=== PATIENT | female | born 1940 | race Caucasian/White ===

== ENCOUNTER 2020-06-28 06:24 | Inpatient (IN) | payer MEDICARE, BC ==
[~2020-06-28 06:24] MED LIST: Lactated Ringers 1,000 ML IV SCH; Lidocaine 1%/Sod Bicarbonate in NS 8.4% 1 ML Syringe IDERM PRN; Sodium Chloride 0.9% 10 ML Syringe FLUSH PRN
[2020-06-28] MEDS ORDERED: Ondansetron 4 MG/2 ML SDV ONE (07:03)
[2020-06-28] MEDS ORDERED: Lidocaine 1% 4 ML ONE (07:04)
[2020-06-28] MEDS ORDERED: fentaNYL 100 MCG/2 ML SDV ONE (07:04)
[2020-06-28] MEDS ORDERED: Propofol 200 MG/20 ML SDV ONE ×3 (07:04→09:08)
[2020-06-28] MEDS ORDERED: ceFAZolin 1 GM Vial ONE (07:05)
--- NOTE | 2020-06-28 07:10 | PCM.PREANE ---
Preanesthetic Assessment - Procedure Proposed Procedure: Left total hip arthroplasty - Anesthesia/Transfusion/Family Hx Anesthesia History: Prior Anesthesia Without Reaction Family History of Anesthesia Reaction: No Transfusion History: No Prior Transfusion(s) - Review of Systems General: No Symptoms Pulmonary: No Symptoms Cardiovascular: Dyspnea on Exertion Gastrointestinal: No Symptoms Neurological: No Symptoms Other: Reports: Diabetes (on no meds "borderline"), Anxiety - Physical Assessment NPO Status Date: 06/27/20 NPO Status Time: 00:00 Height: 1.65 m Weight: 82.962 kg ASA Class: 3 Mental Status: Alert & Oriented x3 Thyro-Mental Finger Breadths: 2 Mouth Opening Finger Breadths: 2 ROM/Head Extension: Limited/Partial Lungs: Clear to Auscultation, Normal Respiratory Effort Cardiovascular: Regular Rate, Regular Rhythm - Lab Values: Laboratory Last Values SARS Virus RNA (PCR) Negative (NEGATIVE) 06/27/20 11:00 - Imaging/EKG Impressions: EKG NSR with bigeminal PACs - Allergies Allergies/Adverse Reactions: Allergies Allergy/AdvReac Type Severity Reaction Status Date / Time MARGOT Inhibitors Allergy Cough Verified 06/27/20 13:26 celecoxib [From Celebrex] Allergy Cannot Verified 06/27/20 13:26 Remember Cephalosporins Allergy Rash Verified 06/27/20 13:26 codeine Allergy Rash Verified 06/27/20 13:26 niacin Allergy Rash Verified 06/27/20 13:26 [From Niaspan Extended-Release] NSAIDS (Non-Steroidal Allergy Confusion Verified 06/27/20 13:26 Anti-Inflamma betablockers Allergy Rash Uncoded 06/27/20 13:26 - Anesthesia Plan Pre-Op Medication Ordered: None - Acknowledgements Anesthesia Type Planned: Spinal Pt an Appropriate Candidate for the Planned Anesthesia: Yes Alternatives and Risks of Anesthesia Discussed w Pt/Guardian: Yes Pt/Guardian Understands and Agrees with Anesthesia Plan: Yes PreAnesthesia Questionnaire HEENT History: Reports: Sinusitis, Other (See Below) Other HEENT History: excessive cerumen, pharyngitis Cardiovascular History: Reports: Other (See Below) Other Cardiovascular History: varicose veins, statin myopathy, right carotid bruit, tachycardia, aortic systolic murmur, aortic stenosis, heart cath Respiratory History: Reports: Other (See Below) Other Respiratory History: upper respiratory infection Gastrointestinal History: Reports: Chronic Constipation, Colon Polyp, GERD, Other (See Below) Other Gastrointestinal History: RUQ pain Genitourinary History: Reports: Other (See Below) Other Genitourinary History: nephrolithitiasis, UTI, dysuria [employer] History: Reports: Musculoskeletal History: Reports: Osteoarthritis, Osteoporosis, Other (See Below) Other Musculoskeletal History: neuropathic leg pain, left toe valgus deformity, bilateral carpal tunnel syndrome, trochanteric bursitis, shoulder spasm, left index finger trigger finger, left bunion, degenerative disc disease Neurological History: Reports: Neuropathy, Diabetic, TIA, Vertigo Other Neuro History: cerebrovascular disease, diabetic neuropathy, vertigo Psychiatric History: Reports: Anxiety, Depression, Other (See Below) Other Psychiatric History: claustrophobia Endocrine/Metabolic History: Reports: Diabetes, Type II, Obesity/BMI 30+, Vitamin D Deficiency Hematologic History: Reports: Anemia Immunologic History: Reports: None Oncologic (Cancer) History: Reports: None Dermatologic History: Reports: Other (See Below) Other Dermatologic History: onchomycosis, tinea corposis, wound dehisence - Infectious Disease History Infectious Disease History: Reports: None - Past Surgical History Head Surgeries/Procedures: Reports: None Cardiovascular Surgical History: Reports: None Respiratory Surgical History: Reports: None GI Surgical History: Reports: Cholecystectomy, Colonoscopy, EGD, Other (See Below) Other GI Surgeries/Procedures: laryngoscopy Female Surgical History: Reports: None Male Surgical History: Reports: None Endocrine Surgical History: Reports: None Neurological Surgical History: Reports: None Musculoskeletal Surgical History: Reports: Carpal Tunnel, Hip Replacement, Knee Replacement Oncologic Surgical History: Reports: None Dermatological Surgical History: Reports: None - SUBSTANCE USE Smoking Status *Q: Never Smoker Tobacco Use Within Last Twelve Months: No Second Hand Smoke Exposure: No Days Per Week of Alcohol Use: 0 Number of Drinks Per Day: 0 Total Drinks Per Week: 0 Recreational Drug Use History: No - HOME MEDS Home Medications: Home Meds Acetaminophen [Tylenol Extra Strength] 1,000 mg PO QID PRN 06/27/20 [History] Ascorbic Acid [Vitamin C] 1,000 mg PO DAILY 06/27/20 [History] Bladder Brake 1 dose PO BID 06/27/20 [History] Calcium Carbonate [Calcium] 500 mg PO DAILY 06/27/20 [History] Cholecalciferol (Vitamin D3) [Vitamin D3] 1,000 unit PO DAILY 06/27/20 [History] Clopidogrel Bisulfate [Plavix] 75 mg PO DAILY 06/27/20 [History] Cod Liver Oil 1 cap PO DAILY 06/27/20 [History] Codeine/Promethazine HCl [Promethazine-Codeine Syrup] 5 ml PO TID PRN 06/27/20 [History] Gabapentin [Neurontin] 100 mg PO BID 06/27/20 [History] Ipratropium [Atrovent 0.03% Nasal [place]] 1 dose NASBOTH QID PRN 06/27/20 [History] Losartan/Hydrochlorothiazide [Losartan-HCTZ 100-25 MG] 1 tab PO DAILY 06/27/20 [History] Neurocare 1 dose PO BID 06/27/20 [History] [place]-3/DHA/Epa/Fish Oil [[place] 3 500 Softgel] 1 cap PO ASDIRECTED 06/27/20 [History] Revivify 1 dose PO BID 06/27/20 [History] Vit C/E/Zn/Coppr/Lutein/Zeaxan [Preservision Areds 2 Softgel] 1 cap PO DAILY 06/27/20 [History] traMADol [Ultram] 50 mg PO Q6H PRN 06/27/20 [History] - CURRENT (IN HOUSE) MEDS Current Meds: Current Medications Lactated Ringer's (Ringers, Lactated) 1,000 mls @ 125 mls/hr IV ASDIRECTED CLAUDETTE Stop: 06/28/20 23:00 Lidocaine/Sodium Bicarbonate (Buffered Lidocaine 1% In Ns 8.4%) 0.25 ml IDERM ONETIME PRN PRN Reason: Prior to IV Start Stop: 06/28/20 18:00 Sodium Chloride (Saline Flush) 10 ml FLUSH ASDIRECTED PRN PRN Reason: Keep Vein Open Stop: 06/28/20 18:00
[2020-06-28] MEDS ORDERED: Bisacodyl 5 MG Tab PO PRN (07:34)
[2020-06-28] MEDS ORDERED: Naloxone 0.4 MG/ML SDV IVPUSH PRN (07:34)
[2020-06-28] MEDS ORDERED: Sennosides 8.6 MG Tab PO PRN (07:34)
[2020-06-28] MEDS ORDERED: Magnesium Hydroxide 400 MG/5 ML Susp 30 ML Cup PO PRN (07:34)
[2020-06-28] MEDS ORDERED: Morphine 2 MG/ML SYRINGE IVPUSH PRN (07:34)
[2020-06-28] MEDS ORDERED: Lactated Ringers 1,000 ML ONE (08:01)
[2020-06-28] MEDS ORDERED: Midazolam 1 MG/ML 2 ML SDV ONE (08:19)
--- NOTE | 2020-06-28 08:32 | PCM.CONS ---
H&P History of Present Illness - General Date of Service: 06/28/20 Admit Problem/Dx: Admission Diagnosis/Problem Admission Diagnosis/Problem Osteoarthritis of hip Source of Information: Patient, Old Records, Provider, RN, RN Notes Reviewed History Limitations: Reports: No Limitations - History of Present Illness Initial Comments - Free Text/Narative: Estelle Irwin is an 80 yo female patient of Dr. Bauer who is post-operative day 0 of left ОЛЕГ. Hospital medicine was consulted for post-operative medical care of the following listed medical conditions. At this time she is resting comfortably in bed. Pain is controlled. She denies any chest pain, shortness of breath, palpitations, nausea, or vomiting. She carries a history of: mild to moderate aortic stenosis, Type II DM, HTN, HLD, Obesity, Hx/o TIA, OA, Anxiety, Depression, GERD, Osteoporosis, perinephrial neuropathy, anemia, urolithiasis, constipation, Vitamin D deficiency, Vertigo. She was never a smoker. She is a full code. Her primary care provider is Marilin Villa PA-C. Her carroting machine offbearer is Dr. Stevens. Left Hip Pain Score (Numeric/FACES): 0 - Related Data Allergies/Adverse Reactions: Allergies Allergy/AdvReac Type Severity Reaction Status Date / Time celecoxib [From Celebrex] Allergy Cannot Verified 06/28/20 11:24 Remember Cephalosporins Allergy Rash Verified 06/28/20 11:24 codeine Allergy Rash Verified 06/28/20 11:24 niacin Allergy Rash Verified 06/28/20 11:24 [From Niaspan Extended-Release] MARGOT Inhibitors AdvReac Cough Verified 06/28/20 11:24 NSAIDS (Non-Steroidal AdvReac Confusion Verified 06/28/20 11:24 Anti-Inflamma betablockers Allergy Rash Uncoded 06/28/20 11:24 Home Medications: Home Meds Acetaminophen [Tylenol Extra Strength] 1,000 mg PO QID PRN 06/27/20 [History] Ascorbic Acid [Vitamin C] 1,000 mg PO DAILY 06/27/20 [History] Calcium Carbonate [Calcium] 500 mg PO DAILY 06/27/20 [History] Cholecalciferol (Vitamin D3) [Vitamin D3] 1,000 unit PO DAILY 06/27/20 [History] Clopidogrel Bisulfate [Plavix] 75 mg PO DAILY 06/27/20 [History] Cod Liver Oil 1 cap PO DAILY 06/27/20 [History] Gabapentin [Neurontin] 100 mg PO DAILY 06/27/20 [History] Ipratropium [Atrovent 0.03% Nasal [place]] 1 dose NASBOTH QID PRN 06/27/20 [History] Losartan/Hydrochlorothiazide [Losartan-HCTZ 100-25 MG] 1 tab PO DAILY 06/27/20 [History] [place]-3/DHA/Epa/Fish Oil [[place] 3 500 Softgel] 1 cap PO ASDIRECTED 06/27/20 [History] Revivify 1 dose PO BID 06/27/20 [History] Vit C/E/Zn/Coppr/Lutein/Zeaxan [Preservision Areds 2 Softgel] 1 cap PO DAILY 06/27/20 [History] traMADol [Ultram] 50 mg PO Q6H PRN 06/27/20 [History] raNITIdine 150 mg PO BID 06/28/20 [History] Past Medical History HEENT History: Reports: Sinusitis, Other (See Below) Other HEENT History: excessive cerumen, pharyngitis Cardiovascular History: Reports: Other (See Below) Other Cardiovascular History: varicose veins, statin myopathy, right carotid bruit, tachycardia, aortic systolic murmur, aortic stenosis, heart cath Respiratory History: Reports: Other (See Below) Other Respiratory History: upper respiratory infection Gastrointestinal History: Reports: Chronic Constipation, Colon Polyp, GERD, Other (See Below) Other Gastrointestinal History: RUQ pain Genitourinary History: Reports: Other (See Below) Other Genitourinary History: nephrolithitiasis, UTI, dysuria [employer] History: Reports: Musculoskeletal History: Reports: Osteoarthritis, Osteoporosis, Other (See Below) Other Musculoskeletal History: neuropathic leg pain, left toe valgus deformity, bilateral carpal tunnel syndrome, trochanteric bursitis, shoulder spasm, left index finger trigger finger, left bunion, degenerative disc disease Neurological History: Reports: Neuropathy, Diabetic, TIA, Vertigo Other Neuro History: cerebrovascular disease, diabetic neuropathy, vertigo Psychiatric History: Reports: Anxiety, Depression, Other (See Below) Other Psychiatric History: claustrophobia Endocrine/Metabolic History: Reports: Diabetes, Type II, Obesity/BMI 30+, Vitamin D Deficiency Hematologic History: Reports: Anemia Immunologic History: Reports: None Oncologic (Cancer) History: Reports: None Dermatologic History: Reports: Other (See Below) Other Dermatologic History: onchomycosis, tinea corposis, wound dehisence - Infectious Disease History Infectious Disease History: Reports: None - Past Surgical History Head Surgeries/Procedures: Reports: None Cardiovascular Surgical History: Reports: None Respiratory Surgical History: Reports: None GI Surgical History: Reports: Cholecystectomy, Colonoscopy, EGD, Other (See Below) Other GI Surgeries/Procedures: laryngoscopy Female Surgical History: Reports: None Male Surgical History: Reports: None Endocrine Surgical History: Reports: None Neurological Surgical History: Reports: None Musculoskeletal Surgical History: Reports: Carpal Tunnel, Hip Replacement, Knee Replacement Oncologic Surgical History: Reports: None Dermatological Surgical History: Reports: None Social & Family History - Tobacco Use Smoking Status *Q: Never Smoker Second Hand Smoke Exposure: No - Caffeine Use Caffeine Use: Reports: Coffee, Soda - Alcohol Use Days Per Week of Alcohol Use: 0 Number of Drinks Per Day: 0 Total Drinks Per Week: 0 - Recreational Drug Use Recreational Drug Use: No Drug Use in Last 12 Months: No H&P Review of Systems - Review of Systems: Review Of Systems: See Below General: Reports: No Symptoms. Denies: Fever, Chills HEENT: Reports: No Symptoms. Denies: Headaches, Sore Throat Pulmonary: Reports: No Symptoms. Denies: Shortness of Breath, Wheezing, Pleuritic Chest Pain, Cough, Sputum Cardiovascular: Reports: No Symptoms. Denies: Chest Pain, Palpitations, Dyspnea on Exertion Gastrointestinal: Reports: No Symptoms. Denies: Abdominal Pain, Constipation, Diarrhea, Nausea, Vomiting Genitourinary: Reports: No Symptoms. Denies: Pain Musculoskeletal: Reports: Leg Pain Skin: Reports: No Symptoms. Denies: Cyanosis Psychiatric: Reports: No Symptoms. Denies: Confusion Neurological: Reports: Numbness, Difficulty Walking, Gait Disturbance Hematologic/Lymphatic: Reports: No Symptoms Immunologic: Reports: No Symptoms Exam - Exam Exam: See Below - Vital Signs Vital Signs: Last Vital Signs Temp 97.2 F 06/28/20 06:45 Pulse 83 06/28/20 06:45 Resp 16 06/28/20 06:45 BP 126/87 06/28/20 06:45 Pulse Ox 96 06/28/20 06:45 Weight: 182 lb 14.4 oz - Exam Quality Assessment: DVT Prophylaxis. No: Supplemental Oxygen, Urinary Catheter General: Alert, Oriented, Cooperative. No: Mild Distress HEENT: Conjunctiva Clear, EACs Clear, Mucosa Moist & [place], Posterior Pharynx Clear Neck: Supple, Trachea Midline Lungs: Clear to Auscultation, Normal Respiratory Effort Cardiovascular: Regular Rate, Regular Rhythm GI/Abdominal Exam: Normal Bowel Sounds, Soft, Non-Tender, No Distention (Female) Exam: Deferred Rectal (Female) Exam: Deferred Extremities: Leg Pain, Limited Range of Motion, Other (Bandage in place on left leg. Bandage is dry and intact. Cooling pack in place.) Peripheral Pulses: 2+: Radial (L), Radial (R), Dorsalis Pedis (L), Dorsalis Pedis (R) Skin: Warm, Dry, Intact Neurological: Cranial Nerves Intact (Grossly ) Neuro Extensive - Mental Status: Alert, Oriented x3, Normal Mood/Affect - Patient Data Lab Results Last 24 hrs: Laboratory Results - last 24 hr 06/27/20 06/28/20 Range/Units 11:00 07:05 POC Glucose 103 (83-110) mg/dL SARS Virus RNA (PCR) Negative (NEGATIVE) Sepsis Event Note - Evaluation Sepsis Screening Result: No Definite Risk - Focused Exam Vital Signs: Vital Signs Temp Pulse Resp BP Pulse Ox 06/28/20 06:45 97.2 F 83 16 126/87 96 Consult PN Assessment/Plan POD#: 0 Procedures: Procedures EXTREMITY STUDY (10/31/14) (1) S/P total hip arthroplasty SNOMED Code(s): 263963852361, 877764609877 Code(s): Z96.649 - PRESENCE OF UNSPECIFIED ARTIFICIAL HIP JOINT Priority: High Current Visit: Yes Qualifiers: Laterality: left Qualified Code(s): Z96.642 - Presence of left artificial hip joint (2) Osteoarthritis SNOMED Code(s): 708328470 Code(s): M19.90 - UNSPECIFIED OSTEOARTHRITIS, UNSPECIFIED SITE Priority: High Current Visit: Yes Qualifiers: Osteoarthritis location: hip Osteoarthritis type: primary Laterality: left Qualified Code(s): M16.12 - Unilateral primary osteoarthritis, left hip (3) HTN (hypertension) SNOMED Code(s): 56775791 Code(s): I10 - ESSENTIAL (PRIMARY) HYPERTENSION Priority: Medium Current Visit: No Qualifiers: Hypertension type: unspecified Qualified Code(s): I10 - Essential (primary) hypertension (4) HLD (hyperlipidemia) SNOMED Code(s): 48861793 Code(s): E78.5 - HYPERLIPIDEMIA, UNSPECIFIED Priority: Low Current Visit: No Qualifiers: Hyperlipidemia type: unspecified Qualified Code(s): E78.5 - Hyperlipidemia, unspecified (5) Obesity SNOMED Code(s): 957269019, 230822733 Code(s): E66.9 - OBESITY, UNSPECIFIED Priority: Low Current Visit: No Qualifiers: Obesity type: unspecified obesity type Obesity classification: adult class 1 (BMI 30 - 34.9) Body mass index: BMI 30.0-30.9 (6) History of TIA (transient ischemic attack) SNOMED Code(s): 960148928 Code(s): Z86.73 - PRSNL HX OF TIA (TIA), AND CEREB INFRC W/O RESID DEFICITS Priority: Low Current Visit: No (7) Anxiety SNOMED Code(s): 90963677 Code(s): F41.9 - ANXIETY DISORDER, UNSPECIFIED Priority: Low Current Visit: No (8) Depression SNOMED Code(s): 52338016 Code(s): F32.9 - MAJOR DEPRESSIVE DISORDER, SINGLE EPISODE, UNSPECIFIED Priority: Low Current Visit: No Qualifiers: Depression Type: other depression Qualified Code(s): F32.89 - Other specified depressive episodes (9) GERD (gastroesophageal reflux disease) SNOMED Code(s): 483789310 Code(s): K21.9 - GASTRO-ESOPHAGEAL REFLUX DISEASE WITHOUT ESOPHAGITIS Priority: Low Current Visit: No Qualifiers: Esophagitis presence: esophagitis presence not specified Qualified Code(s): K21.9 - Gastro-esophageal reflux disease without esophagitis (10) Osteoporosis SNOMED Code(s): 48364297 Code(s): M81.0 - AGE-RELATED OSTEOPOROSIS W/O CURRENT PATHOLOGICAL FRACTURE Priority: Medium Current Visit: No Qualifiers: Osteoporosis type: unspecified Presence of current pathological fracture: unspecified Qualified Code(s): M81.0 - Age-related osteoporosis without current pathological fracture (11) Peripheral neuropathy SNOMED Code(s): 024818337 Code(s): G62.9 - POLYNEUROPATHY, UNSPECIFIED Priority: Medium Current Visit: No Qualifiers: Peripheral neuropathy type: polyneuropathy, unspecified Qualified Code(s): G62.9 - Polyneuropathy, unspecified (12) Anemia SNOMED Code(s): 796970928 Code(s): D64.9 - ANEMIA, UNSPECIFIED Priority: Medium Current Visit: Yes Qualifiers: Anemia type: unspecified type Qualified Code(s): D64.9 - Anemia, unspecified (13) Constipation SNOMED Code(s): 92788734 Code(s): K59.00 - CONSTIPATION, UNSPECIFIED Priority: Low Current Visit: No Qualifiers: Constipation type: unspecified constipation type Qualified Code(s): K59.00 - Constipation, unspecified (14) Vitamin A deficiency SNOMED Code(s): 30538286 Code(s): E50.9 - VITAMIN A DEFICIENCY, UNSPECIFIED Priority: Low Current Visit: No (15) Vertigo SNOMED Code(s): 896960901 Code(s): R42 - DIZZINESS AND GIDDINESS Priority: Low Current Visit: No (16) Aortic stenosis SNOMED Code(s): 92899832 Code(s): I35.0 - NONRHEUMATIC AORTIC (VALVE) STENOSIS Priority: Low Current Visit: No Qualifiers: Cardiac valve disease etiology: etiology unspecified Qualified Code(s): I35.0 - Nonrheumatic aortic (valve) stenosis Problem List Initiated/Reviewed/Updated: Yes Plan: I/P: Acute: S/P left total hip arthroplasty - post-operative day 0 -DVT prophylaxis and pain management per primary care team -PT/OT -IS/RT -Monitor oxygen saturation -Titrate oxygen as needed -Home medications reviewed -Vital signs stable -Monitor labs -Pre-operative Hgb was 11.8 -Pre-operative GFR was 67 -Pre-operative A1C wsa 5.8% -Pre-operative EV was 60-65% with normal wall motion -Bigeminal PACs with Q-waves Osteoarthritis of left hip -Pain management per primary care team Chronic: Mild to moderate aortic stenosis "[place]" Type II DM HTN HLD Obesity Hx/o TIA OA Anxiety Depression GERD Osteoporosis Perinephrial neuropathy Anemia Hx/o urolithiasis Constipation Vitamin D deficiency Vertigo Plan: CM for discharge planning GI prophylaxis Home medications as indicated Other orders as listed above Routine AM labs She is a full code. Her PCP is Marilin Villa PA-C Patient resides at [facility]. Both her and her moved in there prior to her surgery with plan of staying there until she recovers. Thank you for allowing us to participate in the care of this patient!! Requesting Provider: Dr. Bauer Date Consult Requested: 06/28/20 Patient History Reviewed: Yes Admission H&P Reviewed: Yes Notified Requestor: Yes Time Spent (in minutes): 40
[2020-06-28] MEDS: ceFAZolin 1 GM Vial ONE ×2 (09:12→09:23)
[2020-06-28] MEDS: Iodine/Sodium Iodide 2% Tincture 30 ML Bottle ONE ×2 (09:13→09:20)
[2020-06-28] MEDS: Bupivacaine 0.25% 10 ML SDV ONE ×2 (09:13→09:30)
[2020-06-28] MEDS: Vancomycin 1 GM SDV ONE ×2 (09:15→09:35)
[2020-06-28] MEDS: Morphine 8 MG, EPINEPHrine 0.3 MG, Cefuroxime 750 MG, Ketorolac 30 MG, Sodium Chloride ... ONE ×10 (09:15→09:30)
[2020-06-28] MEDS ORDERED: IPRATROPIUM NAS PRN (09:52)
[2020-06-28] MEDS ORDERED: fentaNYL 100 MCG/2 ML SDV IVPUSH PRN (10:10)
--- NOTE | 2020-06-28 10:18 | PCM.POSTAN ---
POST ANESTHESIA ASSESSMENT - MENTAL STATUS Mental Status: Alert, Oriented - VITAL SIGNS Vital Signs: Last Vital Signs Temp 36.2 C 06/28/20 10:10 Pulse 83 06/28/20 10:10 Resp 17 06/28/20 10:10 BP 128/62 06/28/20 10:10 Pulse Ox 93 L 06/28/20 10:10 - RESPIRATORY Respiratory Status: Respiratory Rate WNL, Airway Patent, O2 Saturation Stable - CARDIOVASCULAR CV Status: Pulse Rate WNL, Blood Pressure Stable - GASTROINTESTINAL GI Status: No Symptoms - PAIN Pain Score: 5 - POST OP HYDRATION Hydration Status: Adequate & Stable - OBSERVATIONS Free Text/Narrative:: no anesthesia complications noted
--- NOTE | 2020-06-28 10:51 | CR ---
Pelvis and left hip: AP view of the pelvis was obtained as well as crosstable lateral view of the left hip. Comparison: No previous pelvis or hip exam. Bilateral hip prosthesis are noted. Components are aligned. Underlying bony structures are intact. Mild soft tissue air is noted around the left hip compatible with recent surgical procedure. Impression: 1. Recently placed left hip prosthesis. 2. Nothing acute is seen. Diagnostic code #2 This report was dictated in MDT
[2020-06-28] MEDS: Acetaminophen/HYDROcodone 325-5 MG Tab PO PRN ×2 (14:52→21:11)
[2020-06-28] MEDS: ceFAZolin 2 GM in Premix Bag 1 BAG IV SCH (16:52)
[2020-06-28] MEDS: Famotidine 20 MG Tab PO SCH (21:10)
[2020-06-28] MEDS: Docusate Sodium 100 MG Cap PO SCH (21:10)
[2020-06-28] MEDS: Gabapentin 100 MG Cap PO SCH (21:10)
--- NOTE | 2020-06-29 07:24 | PCM.CONSN ---
- General Info Date of Service: 06/29/20 Admission Dx/Problem (Free Text): Admission Diagnosis/Problem Admission Diagnosis/Problem Osteoarthritis of hip Subjective Update: Up ambulating slowly Last BM 06/28/20 Eating well Has urinated No concerns from patient Utilizing her IS frequently Functional Status: Reports: Pain Controlled, Tolerating Diet, Ambulating, Urinating, Incentive Spirometry. Denies: New Symptoms - Review of Systems General: Reports: Weakness. Denies: Fever, Chills HEENT: Reports: No Symptoms. Denies: Headaches, Sore Throat Pulmonary: Reports: No Symptoms. Denies: Shortness of Breath, Pleuritic Chest Pain, Cough, Wheezing Cardiovascular: Reports: No Symptoms. Denies: Chest Pain, Palpitations, Dyspnea on Exertion Gastrointestinal: Reports: No Symptoms. Denies: Abdominal Pain, Constipation, Diarrhea, Nausea, Vomiting Genitourinary: Reports: No Symptoms. Denies: Pain Musculoskeletal: Reports: Leg Pain Skin: Reports: No Symptoms. Denies: Cyanosis Neurological: Reports: Difficulty Walking, Weakness, Gait Disturbance. Denies: Confusion, Dizziness, Numbness, Tingling Psychiatric: Reports: No Symptoms - Patient Data Vitals - Most Recent: Last Vital Signs Temp 97.4 F 06/28/20 10:55 Pulse 100 06/28/20 23:36 Resp 12 06/28/20 10:55 BP 131/62 06/28/20 14:32 Pulse Ox 92 L 06/28/20 23:36 Weight - Most Recent: 188 lb 1.6 oz I&O - Last 24 Hours: Intake & Output 06/28/20 06/29/20 06/29/20 22:59 06:59 14:59 Intake Total 60 400 Output Total 200 Balance 60 200 Lab Results Last 24 Hours: Laboratory Results - last 24 hr 06/28/20 06/28/20 06/28/20 Range/Units 07:00 16:51 21:14 WBC (3.98-10.04) K/mm3 RBC (3.98-5.22) M/mm3 Hgb (11.2-15.7) gm/dl Hct (34.1-44.9) % MCV (79.4-94.8) fl MCH (25.6-32.2) pg MCHC (32.2-35.5) g/dl RDW Std Deviation (36.4-46.3) fL Plt Count (182-369) K/mm3 MPV (9.4-12.3) fl Sodium (136-145) mEq/L Potassium (3.5-5.1) mEq/L Chloride (98-107) mEq/L Carbon Dioxide (21-32) mEq/L Anion Gap (5-15) BUN (7-18) mg/dL Creatinine (0.55-1.02) mg/dL Est Cr Clr Drug Dosing mL/min Estimated GFR (MDRD) (>60) mL/min BUN/Creatinine Ratio (14-18) Glucose (83-115) mg/dL POC Glucose 131 H 167 H (83-110) mg/dL Calcium (8.5-10.1) mg/dL Total Bilirubin (0.2-1.0) mg/dL AST (15-37) U/L ALT (14-59) U/L Alkaline Phosphatase (46-116) U/L Total Protein (6.4-8.2) g/dl Albumin (3.4-5.0) g/dl Globulin gm/dL Albumin/Globulin Ratio (1-2) Blood Type B NEGATIVE Gel Antibody Screen Negative 06/29/20 06/29/20 06/29/20 Range/Units 05:08 05:08 05:51 WBC 11.04 H (3.98-10.04) K/mm3 RBC 3.74 L (3.98-5.22) M/mm3 Hgb 10.3 L (11.2-15.7) gm/dl Hct 32.4 L (34.1-44.9) % MCV 86.6 (79.4-94.8) fl MCH 27.5 (25.6-32.2) pg MCHC 31.8 L (32.2-35.5) g/dl RDW Std Deviation 41.6 (36.4-46.3) fL Plt Count 190 (182-369) K/mm3 MPV 8.9 L (9.4-12.3) fl Sodium 140 (136-145) mEq/L Potassium 4.0 (3.5-5.1) mEq/L Chloride 104 (98-107) mEq/L Carbon Dioxide 28 (21-32) mEq/L Anion Gap 12.0 (5-15) BUN 21 H (7-18) mg/dL Creatinine 0.8 (0.55-1.02) mg/dL Est Cr Clr Drug Dosing 49.63 mL/min Estimated GFR (MDRD) > 60 (>60) mL/min BUN/Creatinine Ratio 26.3 H (14-18) Glucose 156 H (83-115) mg/dL POC Glucose 169 H (83-110) mg/dL Calcium 8.7 (8.5-10.1) mg/dL Total Bilirubin 0.5 (0.2-1.0) mg/dL AST 72 H (15-37) U/L ALT 76 H (14-59) U/L Alkaline Phosphatase 89 (46-116) U/L Total Protein 5.8 L (6.4-8.2) g/dl Albumin 3.1 L (3.4-5.0) g/dl Globulin 2.7 gm/dL Albumin/Globulin Ratio 1.2 (1-2) Blood Type Gel Antibody Screen Med Orders - Current: Current Medications Hydrocodone Bitart/Acetaminophen ([place] 325-5 Mg) 1 - 2 tab PO Q4H PRN PRN Reason: Pain Last Admin: 06/28/20 21:11 Dose: 1 tab Documented by: Bisacodyl (Dulcolax) 5 mg PO DAILY PRN PRN Reason: Constipation Docusate Sodium (Colace) 100 mg PO BID [facility] Last Admin: 06/28/20 21:10 Dose: 100 mg Documented by: Famotidine (Pepcid) 20 mg PO Q12H [facility] Last Admin: 06/28/20 21:10 Dose: 20 mg Documented by: Gabapentin (Neurontin) 100 mg PO BID [facility] Last Admin: 06/28/20 21:10 Dose: 100 mg Documented by: Hydrochlorothiazide (Hydrochlorothiazide) 25 mg PO DAILY [facility] Cefazolin Sodium/Dextrose 2 gm (/ Premix) 50 mls @ 100 mls/hr IV Q8H [facility] Stop: 06/29/20 09:59 Last Admin: 06/28/20 16:52 Dose: 100 mls/hr Documented by: Losartan Potassium (Cozaar) 100 mg PO DAILY [facility] Magnesium Hydroxide (Milk Of Magnesia) 30 ml PO BID PRN PRN Reason: Constipation Morphine Sulfate (Morphine) 2 mg IVPUSH Q2H PRN PRN Reason: Breakthrough Pain Naloxone HCl (Narcan) 0.1 mg IVPUSH Q5M PRN PRN Reason: Oversedation Ipratropium [ Atrovent 0.03% Nasal [place]] 0 each JASE QID PRN PRN Reason: sinusitis Rivaroxaban (Xarelto) 10 mg PO DAILY [facility] Senna (Senna) 8.6 mg PO BID PRN PRN Reason: Constipation Discontinued Medications Bupivacaine HCl (Sensorcaine-Mpf 0.25%) Confirm Administered Dose 30 ml .ROUTE .STK-MED ONE Stop: 06/28/20 07:09 Last Admin: 06/28/20 09:30 Dose: 30 ml Documented by: Cefazolin Sodium (Ancef) Confirm Administered Dose 2 gm .ROUTE .STK-MED ONE Stop: 06/28/20 07:06 Cefazolin Sodium (Ancef) Confirm Administered Dose 2 gm .ROUTE .STK-MED ONE Stop: 06/28/20 07:09 Last Admin: 06/28/20 09:23 Dose: 2 gm Documented by: Morphine Sulfate 8 mg/Epinephrine HCl 0.3 mg/Cefuroxime Sodium 750 mg/Ketorolac Tromethamine 30 mg/Sodium Chloride 7.9 ml 0 mg .XX ONETIME ONE Stop: 06/28/20 08:31 Last Admin: 06/28/20 09:30 Dose: 788.3 mg Documented by: Fentanyl (Sublimaze) Confirm Administered Dose 100 mcg .ROUTE .STK-MED ONE Stop: 06/28/20 07:05 Fentanyl (Sublimaze) 50 mcg IVPUSH Q5M PRN PRN Reason: Pain Stop: 06/28/20 14:00 Last Admin: 06/28/20 10:20 Dose: 50 mcg Documented by: Lactated Ringer's (Ringers, Lactated) 1,000 mls @ 125 mls/hr IV ASDIRECTED [facility] Stop: 06/28/20 23:00 Last Admin: 06/28/20 07:27 Dose: 125 mls/hr Documented by: Lidocaine HCl (Xylocaine-Mpf 1%) Confirm Administered Dose 4 mls @ as directed .ROUTE .STK-MED ONE Stop: 06/28/20 07:05 Lactated Ringer's (Ringers, Lactated) Confirm Administered Dose 1,000 mls @ as directed .ROUTE .STK-MED ONE Stop: 06/28/20 08:02 Iodine (Iodine 2% Mild Tincture) Confirm Administered Dose 30 ml .ROUTE .STK-MED ONE Stop: 06/28/20 07:09 Last Admin: 06/28/20 09:20 Dose: 18 ml Documented by: Lidocaine/Sodium Bicarbonate (Buffered Lidocaine 1% In Ns 8.4%) 0.25 ml IDERM ONETIME PRN PRN Reason: Prior to IV Start Stop: 06/28/20 18:00 Midazolam HCl (Versed 1 Mg/Ml) Confirm Administered Dose 2 mg .ROUTE .STK-MED ONE Stop: 06/28/20 08:20 Ondansetron HCl (Zofran) Confirm Administered Dose 4 mg .ROUTE .STK-MED ONE Stop: 06/28/20 07:04 Propofol (Diprivan 20 Ml) Confirm Administered Dose 200 mg .ROUTE .STK-MED ONE Stop: 06/28/20 07:05 Propofol (Diprivan 20 Ml) Confirm Administered Dose 200 mg .ROUTE .STK-MED ONE Stop: 06/28/20 08:38 Propofol (Diprivan 20 Ml) Confirm Administered Dose 200 mg .ROUTE .STK-MED ONE Stop: 06/28/20 09:09 Sodium Chloride (Saline Flush) 10 ml FLUSH ASDIRECTED PRN PRN Reason: Keep Vein Open Stop: 06/28/20 18:00 Tranexamic Acid (Cyklokapron) Confirm Administered Dose 1,000 mg .ROUTE .STK-MED ONE Stop: 06/28/20 07:08 Last Admin: 06/28/20 09:35 Dose: 1,000 mg Documented by: Vancomycin HCl (Vancomycin) Confirm Administered Dose 1 gm .ROUTE .STK-MED ONE Stop: 06/28/20 07:09 Last Admin: 06/28/20 09:35 Dose: 1 gm Documented by: - Exam Quality Assessment: Supplemental Oxygen (1L), DVT Prophylaxis. No: Urine Catheter General: Alert, Oriented, Cooperative, No Acute Distress HEENT: Pupils Equal, Pupils Reactive, Mucous Membr. Moist/[place] Neck: Supple, Trachea Midline Lungs: Clear to Auscultation, Normal Respiratory Effort. No: Crackles, Rhonchi, Wheezing Cardiovascular: Regular Rate, Regular Rhythm GI/Abdominal Exam: Normal Bowel Sounds, Soft, Non-Tender, No Distention (Female) Exam: Deferred Back Exam: Normal Inspection, Full Range of Motion Extremities: Normal Capillary Refill, Leg Pain, Limited Range of Motion, Other (Bandage in place on left leg. Cooling pack in place. ) Peripheral Pulses: 2+: Radial (L), Radial (R), Dorsalis Pedis (L), Dorsalis Pedis (R) Skin: Warm, Dry, Intact Neurological: No New Focal Deficit Psy/Mental Status: Alert, Normal Affect, Normal Mood Sepsis Event Note - Evaluation Sepsis Screening Result: No Definite Risk - Focused Exam Vital Signs: Vital Signs Pulse Pulse Ox 06/28/20 23:36 100 92 L Consult PN Assessment/Plan POD#: 1 Procedures: Procedures EXTREMITY STUDY (10/31/14) (1) S/P total hip arthroplasty SNOMED Code(s): 894837762628, 057827254654 Code(s): Z96.649 - PRESENCE OF UNSPECIFIED ARTIFICIAL HIP JOINT Priority: High Current Visit: Yes Qualifiers: Laterality: left Qualified Code(s): Z96.642 - Presence of left artificial hip joint (2) Osteoarthritis SNOMED Code(s): 464827263 Code(s): M19.90 - UNSPECIFIED OSTEOARTHRITIS, UNSPECIFIED SITE Priority: High Current Visit: Yes Qualifiers: Osteoarthritis location: hip Osteoarthritis type: primary Laterality: left Qualified Code(s): M16.12 - Unilateral primary osteoarthritis, left hip (3) HTN (hypertension) SNOMED Code(s): 99698467 Code(s): I10 - ESSENTIAL (PRIMARY) HYPERTENSION Priority: Medium Current Visit: No Qualifiers: Hypertension type: unspecified Qualified Code(s): I10 - Essential (primary) hypertension (4) HLD (hyperlipidemia) SNOMED Code(s): 11922688 Code(s): E78.5 - HYPERLIPIDEMIA, UNSPECIFIED Priority: Low Current Visit: No Qualifiers: Hyperlipidemia type: unspecified Qualified Code(s): E78.5 - Hyperlipidemia, unspecified (5) Obesity SNOMED Code(s): 370273643, 095549032 Code(s): E66.9 - OBESITY, UNSPECIFIED Priority: Low Current Visit: No Qualifiers: Obesity type: unspecified obesity type Obesity classification: adult class 1 (BMI 30 - 34.9) Body mass index: BMI 30.0-30.9 (6) History of TIA (transient ischemic attack) SNOMED Code(s): 590945295 Code(s): Z86.73 - PRSNL HX OF TIA (TIA), AND CEREB INFRC W/O RESID DEFICITS Priority: Low Current Visit: No (7) Anxiety SNOMED Code(s): 66937391 Code(s): F41.9 - ANXIETY DISORDER, UNSPECIFIED Priority: Low Current Visit: No (8) Depression SNOMED Code(s): 39754153 Code(s): F32.9 - MAJOR DEPRESSIVE DISORDER, SINGLE EPISODE, UNSPECIFIED Priority: Low Current Visit: No Qualifiers: Depression Type: other depression Qualified Code(s): F32.89 - Other specified depressive episodes (9) GERD (gastroesophageal reflux disease) SNOMED Code(s): 105591713 Code(s): K21.9 - GASTRO-ESOPHAGEAL REFLUX DISEASE WITHOUT ESOPHAGITIS Priority: Low Current Visit: No Qualifiers: Esophagitis presence: esophagitis presence not specified Qualified Code(s): K21.9 - Gastro-esophageal reflux disease without esophagitis (10) Osteoporosis SNOMED Code(s): 01459656 Code(s): M81.0 - AGE-RELATED OSTEOPOROSIS W/O CURRENT PATHOLOGICAL FRACTURE Priority: Medium Current Visit: No Qualifiers: Osteoporosis type: unspecified Presence of current pathological fracture: unspecified Qualified Code(s): M81.0 - Age-related osteoporosis without current pathological fracture (11) Peripheral neuropathy SNOMED Code(s): 046402916 Code(s): G62.9 - POLYNEUROPATHY, UNSPECIFIED Priority: Medium Current Visit: No Qualifiers: Peripheral neuropathy type: polyneuropathy, unspecified Qualified Code(s): G62.9 - Polyneuropathy, unspecified (12) Anemia SNOMED Code(s): 259560877 Code(s): D64.9 - ANEMIA, UNSPECIFIED Priority: Medium Current Visit: Yes Qualifiers: Anemia type: unspecified type Qualified Code(s): D64.9 - Anemia, unspecified (13) Constipation SNOMED Code(s): 96093386 Code(s): K59.00 - CONSTIPATION, UNSPECIFIED Priority: Low Current Visit: No Qualifiers: Constipation type: unspecified constipation type Qualified Code(s): K59.00 - Constipation, unspecified (14) Vitamin A deficiency SNOMED Code(s): 68359129 Code(s): E50.9 - VITAMIN A DEFICIENCY, UNSPECIFIED Priority: Low Current Visit: No (15) Vertigo SNOMED Code(s): 371753074 Code(s): R42 - DIZZINESS AND GIDDINESS Priority: Low Current Visit: No (16) Aortic stenosis SNOMED Code(s): 48296822 Code(s): I35.0 - NONRHEUMATIC AORTIC (VALVE) STENOSIS Priority: Low Current Visit: No Qualifiers: Cardiac valve disease etiology: etiology unspecified Qualified Code(s): I35.0 - Nonrheumatic aortic (valve) stenosis Problem List Initiated/Reviewed/Updated: Yes My Orders Last 24 Hours: My Active Orders 06/28/20 13:23 Accu Check [Blood Glucose Check, Bedside] [] QIDACANDBED Plan: I/P: Acute: S/P left total hip arthroplasty - post-operative day 1 -DVT prophylaxis and pain management per primary care team -PT/OT -IS/RT -Monitor oxygen saturation -Titrate oxygen as needed -Home medications reviewed -Vital signs stable -Monitor labs -Pre-operative Hgb was 11.8; Now 10.8 -Pre-operative GFR was 67; Now >60 -Pre-operative A1C wsa 5.8% -Pre-operative EV was 60-65% with normal wall motion -Bigeminal PACs with Q-waves Osteoarthritis of left hip -Pain management per primary care team Chronic: Mild to moderate aortic stenosis "[place]" Type II DM HTN HLD Obesity Hx/o TIA OA Anxiety Depression GERD Osteoporosis Perinephrial neuropathy Anemia Hx/o urolithiasis Constipation Vitamin D deficiency Vertigo Plan: CM for discharge planning GI prophylaxis Home medications as indicated Other orders as listed above Routine AM labs She is a full code. Her PCP is Marilin Villa PA-C Estelle continues to require oxygen and has been working with PT/OT who are recommending SNF vs. [facility]. She remains weak and slow with movements. Labs and vital signs remain stable. Plan is to hold her overnight and reassess need for home oxygen and placement in the AM. Patient resides at [facility]. Both her and her moved in there prior to her surgery with plan of staying there until she recovers. Thank you for allowing us to participate in the care of this patient!!
[2020-06-29] MEDS: ceFAZolin 2 GM in Premix Bag 1 BAG IV SCH ×2 (09:45→10:40)
[2020-06-29] MEDS: Famotidine 20 MG Tab PO SCH ×2 (09:51→20:35)
[2020-06-29] MEDS: Docusate Sodium 100 MG Cap PO SCH ×2 (09:51→20:34)
[2020-06-29] MEDS: Hydrochlorothiazide 25 MG Tab PO SCH (09:51)
[2020-06-29] MEDS: Losartan 100 MG Tab PO SCH (09:51)
[2020-06-29] MEDS: Gabapentin 100 MG Cap PO SCH ×2 (09:51→20:34)
[2020-06-29] MEDS: Rivaroxaban 10 MG Tab PO SCH (09:52)
[2020-06-29] MEDS: Acetaminophen/HYDROcodone 325-5 MG Tab PO PRN ×2 (10:01→19:44)
[2020-06-30] MEDS: Acetaminophen/HYDROcodone 325-5 MG Tab PO PRN ×3 (04:00→12:21)
--- NOTE | 2020-06-30 07:35 | PCM.CONSN ---
- General Info Date of Service: 06/30/20 Admission Dx/Problem (Free Text): Admission Diagnosis/Problem Admission Diagnosis/Problem Osteoarthritis of hip Functional Status: Reports: Pain Controlled, Tolerating Diet, Ambulating, Urinating, Incentive Spirometry. Denies: New Symptoms - Review of Systems General: Reports: No Symptoms. Denies: Fever, Chills HEENT: Reports: No Symptoms. Denies: Headaches, Post Nasal Drip, Sore Throat Pulmonary: Reports: No Symptoms. Denies: Shortness of Breath, Pleuritic Chest Pain, Cough, Sputum, Wheezing Cardiovascular: Reports: No Symptoms. Denies: Chest Pain, Palpitations Gastrointestinal: Reports: No Symptoms. Denies: Abdominal Pain, Constipation, Diarrhea, Nausea, Vomiting Genitourinary: Reports: No Symptoms. Denies: Pain Musculoskeletal: Reports: Leg Pain Skin: Reports: No Symptoms. Denies: Cyanosis Neurological: Reports: No Symptoms, Difficulty Walking, Gait Disturbance. Denies: Confusion, Numbness, Tingling Psychiatric: Reports: No Symptoms - Patient Data Vitals - Most Recent: Last Vital Signs Temp 98.1 F 06/29/20 20:37 Pulse 102 H 06/29/20 20:37 Resp 18 06/29/20 20:37 BP 120/67 06/29/20 20:37 Pulse Ox 95 06/29/20 20:37 Weight - Most Recent: 188 lb 12.8 oz I&O - Last 24 Hours: Intake & Output 06/29/20 06/30/20 06/30/20 22:59 06:59 14:59 Intake Total 670 400 Output Total 300 300 Balance 370 100 Lab Results Last 24 Hours: Laboratory Results - last 24 hr 06/29/20 06/29/20 06/29/20 Range/Units 11:36 17:38 20:18 POC Glucose 132 H 169 H 165 H (83-110) mg/dL 06/30/20 Range/Units 06:39 POC Glucose 139 H (83-110) mg/dL Med Orders - Current: Current Medications Hydrocodone Bitart/Acetaminophen ([place] 325-5 Mg) 1 - 2 tab PO Q4H PRN PRN Reason: Pain Last Admin: 06/30/20 04:00 Dose: 2 tab Documented by: Bisacodyl (Dulcolax) 5 mg PO DAILY PRN PRN Reason: Constipation Docusate Sodium (Colace) 100 mg PO BID [facility] Last Admin: 06/29/20 20:34 Dose: 100 mg Documented by: Famotidine (Pepcid) 20 mg PO Q12H [facility] Last Admin: 06/29/20 20:35 Dose: 20 mg Documented by: Gabapentin (Neurontin) 100 mg PO BID [facility] Last Admin: 06/29/20 20:34 Dose: 100 mg Documented by: Hydrochlorothiazide (Hydrochlorothiazide) 25 mg PO DAILY [facility] Last Admin: 06/29/20 09:51 Dose: 25 mg Documented by: Losartan Potassium (Cozaar) 100 mg PO DAILY [facility] Last Admin: 06/29/20 09:51 Dose: 100 mg Documented by: Magnesium Hydroxide (Milk Of Magnesia) 30 ml PO BID PRN PRN Reason: Constipation Morphine Sulfate (Morphine) 2 mg IVPUSH Q2H PRN PRN Reason: Breakthrough Pain Naloxone HCl (Narcan) 0.1 mg IVPUSH Q5M PRN PRN Reason: Oversedation Ipratropium [ Atrovent 0.03% Nasal [place]] 0 each JASE QID PRN PRN Reason: sinusitis Rivaroxaban (Xarelto) 10 mg PO DAILY [facility] Last Admin: 06/29/20 09:52 Dose: 10 mg Documented by: Senna (Senna) 8.6 mg PO BID PRN PRN Reason: Constipation Discontinued Medications Bupivacaine HCl (Sensorcaine-Mpf 0.25%) Confirm Administered Dose 30 ml .ROUTE .STK-MED ONE Stop: 06/28/20 07:09 Last Admin: 06/28/20 09:30 Dose: 30 ml Documented by: Cefazolin Sodium (Ancef) Confirm Administered Dose 2 gm .ROUTE .STK-MED ONE Stop: 06/28/20 07:06 Cefazolin Sodium (Ancef) Confirm Administered Dose 2 gm .ROUTE .STK-MED ONE Stop: 06/28/20 07:09 Last Admin: 06/28/20 09:23 Dose: 2 gm Documented by: Morphine Sulfate 8 mg/Epinephrine HCl 0.3 mg/Cefuroxime Sodium 750 mg/Ketorolac Tromethamine 30 mg/Sodium Chloride 7.9 ml 0 mg .XX ONETIME ONE Stop: 06/28/20 08:31 Last Admin: 06/28/20 09:30 Dose: 788.3 mg Documented by: Fentanyl (Sublimaze) Confirm Administered Dose 100 mcg .ROUTE .STK-MED ONE Stop: 06/28/20 07:05 Fentanyl (Sublimaze) 50 mcg IVPUSH Q5M PRN PRN Reason: Pain Stop: 06/28/20 14:00 Last Admin: 06/28/20 10:20 Dose: 50 mcg Documented by: Lactated Ringer's (Ringers, Lactated) 1,000 mls @ 125 mls/hr IV ASDIRECTED [facility] Stop: 06/28/20 23:00 Last Admin: 06/28/20 07:27 Dose: 125 mls/hr Documented by: Lidocaine HCl (Xylocaine-Mpf 1%) Confirm Administered Dose 4 mls @ as directed .ROUTE .STK-MED ONE Stop: 06/28/20 07:05 Cefazolin Sodium/Dextrose 2 gm (/ Premix) 50 mls @ 100 mls/hr IV Q8H [facility] Stop: 06/29/20 09:59 Last Admin: 06/29/20 10:40 Dose: 100 mls/hr Documented by: Lactated Ringer's (Ringers, Lactated) Confirm Administered Dose 1,000 mls @ as directed .ROUTE .STK-MED ONE Stop: 06/28/20 08:02 Iodine (Iodine 2% Mild Tincture) Confirm Administered Dose 30 ml .ROUTE .STK-MED ONE Stop: 06/28/20 07:09 Last Admin: 06/28/20 09:20 Dose: 18 ml Documented by: Lidocaine/Sodium Bicarbonate (Buffered Lidocaine 1% In Ns 8.4%) 0.25 ml IDERM ONETIME PRN PRN Reason: Prior to IV Start Stop: 06/28/20 18:00 Midazolam HCl (Versed 1 Mg/Ml) Confirm Administered Dose 2 mg .ROUTE .STK-MED ONE Stop: 06/28/20 08:20 Ondansetron HCl (Zofran) Confirm Administered Dose 4 mg .ROUTE .STK-MED ONE Stop: 06/28/20 07:04 Propofol (Diprivan 20 Ml) Confirm Administered Dose 200 mg .ROUTE .STK-MED ONE Stop: 06/28/20 07:05 Propofol (Diprivan 20 Ml) Confirm Administered Dose 200 mg .ROUTE .STK-MED ONE Stop: 06/28/20 08:38 Propofol (Diprivan 20 Ml) Confirm Administered Dose 200 mg .ROUTE .[employer] ONE Stop: 06/28/20 09:09 Sodium Chloride (Saline Flush) 10 ml FLUSH ASDIRECTED PRN PRN Reason: Keep Vein Open Stop: 06/28/20 18:00 Tranexamic Acid (Cyklokapron) Confirm Administered Dose 1,000 mg .ROUTE .STK-MED ONE Stop: 06/28/20 07:08 Last Admin: 06/28/20 09:35 Dose: 1,000 mg Documented by: Vancomycin HCl (Vancomycin) Confirm Administered Dose 1 gm .ROUTE .[employer] ONE Stop: 06/28/20 07:09 Last Admin: 06/28/20 09:35 Dose: 1 gm Documented by: - Exam Quality Assessment: DVT Prophylaxis. No: Supplemental Oxygen General: Alert, Oriented, Cooperative, No Acute Distress HEENT: Pupils Equal, Pupils Reactive, Mucous Membr. Moist/[place] Neck: Supple, Trachea Midline Lungs: Clear to Auscultation, Normal Respiratory Effort Cardiovascular: Regular Rate, Regular Rhythm, Murmurs GI/Abdominal Exam: Normal Bowel Sounds, Soft, Non-Tender, No Distention (Female) Exam: Deferred Back Exam: Normal Inspection, Full Range of Motion Extremities: Normal Capillary Refill, Leg Pain, Limited Range of Motion, Other (Bandage in place on left leg. Cooling pack in place. ) Peripheral Pulses: 2+: Radial (L), Radial (R), Dorsalis Pedis (L), Dorsalis Pedis (R) Skin: Warm, Dry, Intact Wound/Incisions: Dressing Dry and Intact Neurological: No New Focal Deficit Psy/Mental Status: Alert, Normal Affect, Normal Mood Sepsis Event Note - Evaluation Sepsis Screening Result: No Definite Risk - Focused Exam Vital Signs: Vital Signs Temp Pulse Resp BP Pulse Ox 06/29/20 20:37 98.1 F 102 H 18 120/67 95 Consult PN Assessment/Plan POD#: 2 Procedures: Procedures EXTREMITY STUDY (10/31/14) (1) S/P total hip arthroplasty SNOMED Code(s): 209317492564, 984315676347 Code(s): Z96.649 - PRESENCE OF UNSPECIFIED ARTIFICIAL HIP JOINT Priority: High Current Visit: Yes Qualifiers: Laterality: left Qualified Code(s): Z96.642 - Presence of left artificial hip joint (2) Osteoarthritis SNOMED Code(s): 178905496 Code(s): M19.90 - UNSPECIFIED OSTEOARTHRITIS, UNSPECIFIED SITE Priority: High Current Visit: Yes Qualifiers: Osteoarthritis location: hip Osteoarthritis type: primary Laterality: left Qualified Code(s): M16.12 - Unilateral primary osteoarthritis, left hip (3) HTN (hypertension) SNOMED Code(s): 93481718 Code(s): I10 - ESSENTIAL (PRIMARY) HYPERTENSION Priority: Medium Current Visit: No Qualifiers: Hypertension type: unspecified Qualified Code(s): I10 - Essential (primary) hypertension (4) HLD (hyperlipidemia) SNOMED Code(s): 75383535 Code(s): E78.5 - HYPERLIPIDEMIA, UNSPECIFIED Priority: Low Current Visit: No Qualifiers: Hyperlipidemia type: unspecified Qualified Code(s): E78.5 - Hyperlipidemia, unspecified (5) Obesity SNOMED Code(s): 102172946, 152166425 Code(s): E66.9 - OBESITY, UNSPECIFIED Priority: Low Current Visit: No Qualifiers: Obesity type: unspecified obesity type Obesity classification: adult class 1 (BMI 30 - 34.9) Body mass index: BMI 30.0-30.9 (6) History of TIA (transient ischemic attack) SNOMED Code(s): 591437500 Code(s): Z86.73 - PRSNL HX OF TIA (TIA), AND CEREB INFRC W/O RESID DEFICITS Priority: Low Current Visit: No (7) Anxiety SNOMED Code(s): 62448595 Code(s): F41.9 - ANXIETY DISORDER, UNSPECIFIED Priority: Low Current Visit: No (8) Depression SNOMED Code(s): 27478345 Code(s): F32.9 - MAJOR DEPRESSIVE DISORDER, SINGLE EPISODE, UNSPECIFIED Priority: Low Current Visit: No Qualifiers: Depression Type: other depression Qualified Code(s): F32.89 - Other specified depressive episodes (9) GERD (gastroesophageal reflux disease) SNOMED Code(s): 730731299 Code(s): K21.9 - GASTRO-ESOPHAGEAL REFLUX DISEASE WITHOUT ESOPHAGITIS Priority: Low Current Visit: No Qualifiers: Esophagitis presence: esophagitis presence not specified Qualified Code(s): K21.9 - Gastro-esophageal reflux disease without esophagitis (10) Osteoporosis SNOMED Code(s): 51922824 Code(s): M81.0 - AGE-RELATED OSTEOPOROSIS W/O CURRENT PATHOLOGICAL FRACTURE Priority: Medium Current Visit: No Qualifiers: Osteoporosis type: unspecified Presence of current pathological fracture: unspecified Qualified Code(s): M81.0 - Age-related osteoporosis without current pathological fracture (11) Peripheral neuropathy SNOMED Code(s): 599525484 Code(s): G62.9 - POLYNEUROPATHY, UNSPECIFIED Priority: Medium Current Visit: No Qualifiers: Peripheral neuropathy type: polyneuropathy, unspecified Qualified Code(s): G62.9 - Polyneuropathy, unspecified (12) Anemia SNOMED Code(s): 852801743 Code(s): D64.9 - ANEMIA, UNSPECIFIED Priority: Medium Current Visit: Yes Qualifiers: Anemia type: unspecified type Qualified Code(s): D64.9 - Anemia, unspecified (13) Constipation SNOMED Code(s): 07852994 Code(s): K59.00 - CONSTIPATION, UNSPECIFIED Priority: Low Current Visit: No Qualifiers: Constipation type: unspecified constipation type Qualified Code(s): K59.00 - Constipation, unspecified (14) Vitamin A deficiency SNOMED Code(s): 80872154 Code(s): E50.9 - VITAMIN A DEFICIENCY, UNSPECIFIED Priority: Low Current Visit: No (15) Vertigo SNOMED Code(s): 637030537 Code(s): R42 - DIZZINESS AND GIDDINESS Priority: Low Current Visit: No (16) Aortic stenosis SNOMED Code(s): 28096051 Code(s): I35.0 - NONRHEUMATIC AORTIC (VALVE) STENOSIS Priority: Low Curr ent Visit: No Qualifiers: Cardiac valve disease etiology: etiology unspecified Qualified Code(s): I35.0 - Nonrheumatic aortic (valve) stenosis Problem List Initiated/Reviewed/Updated: Yes My Orders Last 24 Hours: My Active Orders 06/30/20 07:19 CBC WITH AUTO DIFF [HEME] Routine CMP [COMPREHENSIVE METABOLIC PN,CMP] [CHEM] Routine MAGNESIUM [CHEM] Routine Plan: I/P: Acute: S/P left total hip arthroplasty - post-operative day 2 -DVT prophylaxis and pain management per primary care team -PT/OT -IS/RT -Monitor oxygen saturation -Titrate oxygen as needed -Home medications reviewed -Vital signs stable -Monitor labs -Pre-operative Hgb was 11.8; Now 10.8 -->9.9 -Pre-operative GFR was 67; Now >60 --> greater than 60 -Pre-operative A1C wsa 5.8% -Pre-operative EV was 60-65% with normal wall motion -Bigeminal PACs with Q-waves -Ambulated with RT and does not need home O2. Osteoarthritis of left hip -Pain management per primary care team Chronic: Mild to moderate aortic stenosis "[place]" Type II DM HTN HLD Obesity Hx/o TIA OA Anxiety Depression GERD Osteoporosis Perinephrial neuropathy Anemia Hx/o urolithiasis Constipation Vitamin D deficiency Vertigo Plan: CM for discharge planning GI prophylaxis Home medications as indicated Other orders as listed above Routine AM labs She is a full code. Her PCP is Marilin Villa PA-C From a hospitalist standpoint Estelle is doing well today. Her labs and vital signs have remained grossly stable. Her magnesium was slightly low at 1.7 and this was supplemented via IV. She was held overnight due to low oxygen saturations requiring supplementation and difficulty with PT/OT. Today this is improved. She has been weaned off oxygen. PT and OT are recommending she return to [facility] with home health services for PT. [facility] has evaluated her and deemed her appropriate for their facility. She has been up ambulating. She has urinated. Pain is controlled. She has been utilizing her incentive spirometer. She is cleared for discharge pending primary team and PT OT agreement. Thank you for allowing us to participate in the care of this patient!!
[2020-06-30] MEDS ORDERED: Magnesium Sulfate/Water 2 GM in Premix Bag 1 BAG IV ONE (08:49)
[2020-06-30] MEDS: Gabapentin 100 MG Cap PO SCH (10:16)
[2020-06-30] MEDS: Losartan 100 MG Tab PO SCH (10:17)
[2020-06-30] MEDS: Rivaroxaban 10 MG Tab PO SCH ×2 (10:17→10:24)
[2020-06-30] MEDS: Famotidine 20 MG Tab PO SCH (10:17)
[2020-06-30] MEDS: Docusate Sodium 100 MG Cap PO SCH (10:17)
[2020-06-30] MEDS: Hydrochlorothiazide 25 MG Tab PO SCH (10:17)
--- NOTE | 2020-06-30 14:44 | PCM.SURGPN ---
- General Info Date of Service: 06/29/20 POD#: 1 Functional Status: Reports: Pain Controlled, Tolerating Diet, Ambulating, Urinating, Incentive Spirometry - Patient Data Vitals - Most Recent: Last Vital Signs Temp 98.4 F 06/30/20 10:20 Pulse 93 06/30/20 10:20 Resp 16 06/30/20 10:20 BP 110/56 L 06/30/20 10:20 Pulse Ox 92 L 06/30/20 10:20 Weight - Most Recent: 188 lb 12.8 oz I&O - Last 24 Hours: Intake & Output 06/29/20 06/30/20 06/30/20 22:59 06:59 14:59 Intake Total 670 400 Output Total 300 300 Balance 370 100 Lab Results Last 24 Hrs: Laboratory Results - last 24 hr 06/29/20 06/29/20 06/30/20 Range/Units 17:38 20:18 06:39 WBC (3.98-10.04) K/mm3 RBC (3.98-5.22) M/mm3 Hgb (11.2-15.7) gm/dl Hct (34.1-44.9) % MCV (79.4-94.8) fl MCH (25.6-32.2) pg MCHC (32.2-35.5) g/dl RDW Std Deviation (36.4-46.3) fL Plt Count (182-369) K/mm3 MPV (9.4-12.3) fl Neut % (Auto) (34.0-71.1) % Lymph % (Auto) (19.3-51.7) % Jay % (Auto) (4.7-12.5) % Eos % (Auto) (0.7-5.8) Baso % (Auto) (0.1-1.2) % Neut # (Auto) (1.56-6.13) K/mm3 Lymph # (Auto) (1.18-3.74) K/mm3 Jay # (Auto) (0.24-0.36) K/mm3 Eos # (Auto) (0.04-0.36) K/mm3 Baso # (Auto) (0.01-0.08) K/mm3 Manual Slide Review Sodium (136-145) mEq/L Potassium (3.5-5.1) mEq/L Chloride (98-107) mEq/L Carbon Dioxide (21-32) mEq/L Anion Gap (5-15) BUN (7-18) mg/dL Creatinine (0.55-1.02) mg/dL Est Cr Clr Drug Dosing mL/min Estimated GFR (MDRD) (>60) mL/min BUN/Creatinine Ratio (14-18) Glucose (83-115) mg/dL POC Glucose 169 H 165 H 139 H (83-110) mg/dL Calcium (8.5-10.1) mg/dL Magnesium (1.8-2.4) mg/dl Total Bilirubin (0.2-1.0) mg/dL AST (15-37) U/L ALT (14-59) U/L Alkaline Phosphatase (46-116) U/L Total Protein (6.4-8.2) g/dl Albumin (3.4-5.0) g/dl Globulin gm/dL Albumin/Globulin Ratio (1-2) 06/30/20 06/30/20 Range/Units 07:32 07:32 WBC 10.94 H (3.98-10.04) K/mm3 RBC 3.63 L (3.98-5.22) M/mm3 Hgb 9.9 L (11.2-15.7) gm/dl Hct 31.8 L (34.1-44.9) % MCV 87.6 (79.4-94.8) fl MCH 27.3 (25.6-32.2) pg MCHC 31.1 L (32.2-35.5) g/dl RDW Std Deviation 42.3 (36.4-46.3) fL Plt Count 186 (182-369) K/mm3 MPV 9.2 L (9.4-12.3) fl Neut % (Auto) 80.2 H (34.0-71.1) % Lymph % (Auto) 9.9 L (19.3-51.7) % Jay % (Auto) 9.2 (4.7-12.5) % Eos % (Auto) 0.3 L (0.7-5.8) Baso % (Auto) 0.1 (0.1-1.2) % Neut # (Auto) 8.78 H (1.56-6.13) K/mm3 Lymph # (Auto) 1.08 L (1.18-3.74) K/mm3 Jay # (Auto) 1.01 H (0.24-0.36) K/mm3 Eos # (Auto) 0.03 L (0.04-0.36) K/mm3 Baso # (Auto) 0.01 (0.01-0.08) K/mm3 Manual Slide Review Normal smear Sodium 137 (136-145) mEq/L Potassium 3.7 (3.5-5.1) mEq/L Chloride 99 (98-107) mEq/L Carbon Dioxide 30 (21-32) mEq/L Anion Gap 11.7 (5-15) BUN 22 H (7-18) mg/dL Creatinine 0.9 (0.55-1.02) mg/dL Est Cr Clr Drug Dosing 44.11 mL/min Estimated GFR (MDRD) > 60 (>60) mL/min BUN/Creatinine Ratio 24.4 H (14-18) Glucose 141 H (83-115) mg/dL POC Glucose (83-110) mg/dL Calcium 8.7 (8.5-10.1) mg/dL Magnesium 1.7 L (1.8-2.4) mg/dl Total Bilirubin 0.6 (0.2-1.0) mg/dL AST 33 (15-37) U/L ALT 49 (14-59) U/L Alkaline Phosphatase 111 (46-116) U/L Total Protein 5.8 L (6.4-8.2) g/dl Albumin 2.7 L (3.4-5.0) g/dl Globulin 3.1 gm/dL Albumin/Globulin Ratio 0.9 L (1-2) Med Orders - Current: Current Medications Hydrocodone Bitart/Acetaminophen ([place] 325-5 Mg) 1 - 2 tab PO Q4H PRN PRN Reason: Pain Last Admin: 06/30/20 12:21 Dose: 1 tab Documented by: Bisacodyl (Dulcolax) 5 mg PO DAILY PRN PRN Reason: Constipation Docusate Sodium (Colace) 100 mg PO BID [facility] Last Admin: 06/30/20 10:17 Dose: 100 mg Documented by: Famotidine (Pepcid) 20 mg PO Q12H [facility] Last Admin: 06/30/20 10:17 Dose: 20 mg Documented by: Gabapentin (Neurontin) 100 mg PO BID [facility] Last Admin: 06/30/20 10:16 Dose: 100 mg Documented by: Hydrochlorothiazide (Hydrochlorothiazide) 25 mg PO DAILY [facility] Last Admin: 06/30/20 10:17 Dose: 25 mg Documented by: Losartan Potassium (Cozaar) 100 mg PO DAILY [facility] Last Admin: 06/30/20 10:17 Dose: 100 mg Documented by: Magnesium Hydroxide (Milk Of Magnesia) 30 ml PO BID PRN PRN Reason: Constipation Morphine Sulfate (Morphine) 2 mg IVPUSH Q2H PRN PRN Reason: Breakthrough Pain Naloxone HCl (Narcan) 0.1 mg IVPUSH Q5M PRN PRN Reason: Oversedation Ipratropium [ Atrovent 0.03% Nasal [place]] 0 each JASE QID PRN PRN Reason: sinusitis Rivaroxaban (Xarelto) 10 mg PO DAILY [facility] Last Admin: 06/30/20 10:24 Dose: 10 mg Documented by: Senna (Senna) 8.6 mg PO BID PRN PRN Reason: Constipation Discontinued Medications Bupivacaine HCl (Sensorcaine-Mpf 0.25%) Confirm Administered Dose 30 ml .ROUTE .STK-MED ONE Stop: 06/28/20 07:09 Last Admin: 06/28/20 09:30 Dose: 30 ml Documented by: Cefazolin Sodium (Ancef) Confirm Administered Dose 2 gm .ROUTE .STK-MED ONE Stop: 06/28/20 07:06 Cefazolin Sodium (Ancef) Confirm Administered Dose 2 gm .ROUTE .STK-MED ONE Stop: 06/28/20 07:09 Last Admin: 06/28/20 09:23 Dose: 2 gm Documented by: Morphine Sulfate 8 mg/Epinephrine HCl 0.3 mg/Cefuroxime Sodium 750 mg/Ketorolac Tromethamine 30 mg/Sodium Chloride 7.9 ml 0 mg .XX ONETIME ONE Stop: 06/28/20 08:31 Last Admin: 06/28/20 09:30 Dose: 788.3 mg Documented by: Fentanyl (Sublimaze) Confirm Administered Dose 100 mcg .ROUTE .STK-MED ONE Stop: 06/28/20 07:05 Fentanyl (Sublimaze) 50 mcg IVPUSH Q5M PRN PRN Reason: Pain Stop: 06/28/20 14:00 Last Admin: 06/28/20 10:20 Dose: 50 mcg Documented by: Lactated Ringer's (Ringers, Lactated) 1,000 mls @ 125 mls/hr IV ASDIRECTED [facility] Stop: 06/28/20 23:00 Last Admin: 06/28/20 07:27 Dose: 125 mls/hr Documented by: Lidocaine HCl (Xylocaine-Mpf 1%) Confirm Administered Dose 4 mls @ as directed .ROUTE .STK-MED ONE Stop: 06/28/20 07:05 Cefazolin Sodium/Dextrose 2 gm (/ Premix) 50 mls @ 100 mls/hr IV Q8H [facility] Stop: 06/29/20 09:59 Last Admin: 06/29/20 10:40 Dose: 100 mls/hr Documented by: Lactated Ringer's (Ringers, Lactated) Confirm Administered Dose 1,000 mls @ as directed .ROUTE .STK-MED ONE Stop: 06/28/20 08:02 Magnesium Sulfate 2 gm/ Premix 50 mls @ 25 mls/hr IV ONETIME ONE Stop: 06/30/20 10:48 Last Admin: 06/30/20 10:19 Dose: 25 mls/hr Documented by: Iodine (Iodine 2% Mild Tincture) Confirm Administered Dose 30 ml .ROUTE .STK-MED ONE Stop: 06/28/20 07:09 Last Admin: 06/28/20 09:20 Dose: 18 ml Documented by: Lidocaine/Sodium Bicarbonate (Buffered Lidocaine 1% In Ns 8.4%) 0.25 ml IDERM ONETIME PRN PRN Reason: Prior to IV Start Stop: 06/28/20 18:00 Midazolam HCl (Versed 1 Mg/Ml) Confirm Administered Dose 2 mg .ROUTE .STK-MED ONE Stop: 06/28/20 08:20 Ondansetron HCl (Zofran) Confirm Administered Dose 4 mg .ROUTE .STK-MED ONE Stop: 06/28/20 07:04 Propofol (Diprivan 20 Ml) Confirm Administered Dose 200 mg .ROUTE .STK-MED ONE Stop: 06/28/20 07:05 Propofol (Diprivan 20 Ml) Confirm Administered Dose 200 mg .ROUTE .STK-MED ONE Stop: 06/28/20 08:38 Propofol (Diprivan 20 Ml) Confirm Administered Dose 200 mg .ROUTE .STK-MED ONE Stop: 06/28/20 09:09 Sodium Chloride (Saline Flush) 10 ml FLUSH ASDIRECTED PRN PRN Reason: Keep Vein Open Stop: 06/28/20 18:00 Tranexamic Acid (Cyklokapron) Confirm Administered Dose 1,000 mg .ROUTE .STK-MED ONE Stop: 06/28/20 07:08 Last Admin: 06/28/20 09:35 Dose: 1,000 mg Documented by: Vancomycin HCl (Vancomycin) Confirm Administered Dose 1 gm .ROUTE .STK-MED ONE Stop: 06/28/20 07:09 Last Admin: 06/28/20 09:35 Dose: 1 gm Documented by: - Exam Wound/Incisions: Dressing Dry and Intact General: Alert, Cooperative, No Acute Distress Lungs: Normal Respiratory Effort Extremities: Other (NVS intact for BLE. Josselyn's negative.) Sepsis Event Note - Evaluation Sepsis Screening Result: No Definite Risk - Focused Exam Vital Signs: Vital Signs Temp Pulse Resp BP Pulse Ox 06/30/20 10:20 98.4 F 93 16 110/56 L 92 L 06/30/20 10:17 110/56 L 06/30/20 04:12 85 97 06/30/20 03:49 98.2 F 88 18 112/63 94 L - Problem List Review Problem List Initiated/Reviewed/Updated: Yes - My Orders Last 24 Hours: Active Orders 24 hr Category Date Time Status Communication Order [RC] ASDIRECTED Care 06/30/20 10:25 Active Evaluate for Home Oxygen [RT Evaluate for Home Oxygen] Care 06/30/20 09:58 Active [RC] Click to Edit Ready for Discharge [RC] PER UNIT ROUTINE Care 06/30/20 10:25 Active Medication Orders Hydrocodone Bitart/Acetaminophen ([place] 325-5 Mg) 1 - 2 tab PO Q4H PRN PRN Reason: Pain Last Admin: 06/30/20 12:21 Dose: 1 tab Documented by: Admin: 06/30/20 08:32 Dose: 1 tab Documented by: Admin: 06/30/20 04:00 Dose: 2 tab Documented by: Admin: 06/29/20 19:44 Dose: 2 tab Documented by: Admin: 06/29/20 10:01 Dose: 2 tab Documented by: Admin: 06/28/20 21:11 Dose: 1 tab Documented by: Admin: 06/28/20 14:52 Dose: 2 tab Documented by: JOAO Bisacodyl (Dulcolax) 5 mg PO DAILY PRN PRN Reason: Constipation Docusate Sodium (Colace) 100 mg PO BID [facility] Last Admin: 06/30/20 10:17 Dose: 100 mg Documented by: Admin: 06/29/20 20:34 Dose: 100 mg Documented by: Admin: 06/29/20 09:51 Dose: 100 mg Documented by: Admin: 06/28/20 21:10 Dose: 100 mg Documented by: LANCE Famotidine (Pepcid) 20 mg PO Q12H [facility] Last Admin: 06/30/20 10:17 Dose: 20 mg Documented by: Admin: 06/29/20 20:35 Dose: 20 mg Documented by: Admin: 06/29/20 09:51 Dose: 20 mg Documented by: Admin: 06/28/20 21:10 Dose: 20 mg Documented by: LANCE Gabapentin (Neurontin) 100 mg PO BID [facility] Last Admin: 06/30/20 10:16 Dose: 100 mg Documented by: Admin: 06/29/20 20:34 Dose: 100 mg Documented by: Admin: 06/29/20 09:51 Dose: 100 mg Documented by: Admin: 06/28/20 21:10 Dose: 100 mg Documented by: LANCE Hydrochlorothiazide (Hydrochlorothiazide) 25 mg PO DAILY [facility], 1928–1983 Last Admin: 06/30/20 10:17 Dose: 25 mg Documented by: Admin: 06/29/20 09:51 Dose: 25 mg Documented by: DIEGO Losartan Potassium (Cozaar) 100 mg PO DAILY [facility], 1928–1983 Last Admin: 06/30/20 10:17 Dose: 100 mg Documented by: Admin: 06/29/20 09:51 Dose: 100 mg Documented by: DIEGO Magnesium Hydroxide (Milk Of Magnesia) 30 ml PO BID PRN PRN Reason: Constipation Morphine Sulfate (Morphine) 2 mg IVPUSH Q2H PRN PRN Reason: Breakthrough Pain Naloxone HCl (Narcan) 0.1 mg IVPUSH Q5M PRN PRN Reason: Oversedation Ipratropium [ Atrovent 0.03% Nasal Mercer] 0 each JASE QID PRN PRN Reason: sinusitis Rivaroxaban (Xarelto) 10 mg PO DAILY [facility] Last Admin: 06/30/20 10:24 Dose: 10 mg Documented by: Admin: 06/30/20 10:17 Dose: 10 mg Documented by: Admin: 06/29/20 09:52 Dose: 10 mg Documented by: DIEGO Alarcon (Senna) 8.6 mg PO BID PRN PRN Reason: Constipation - Assessment Assessment (Free Text/Narrative):: POD#1 - left ОЛЕГ - Plan Plan (Free Text/Narrative):: 1. Continue with PT and OT. WBAT with FWW. ОЛЕГ precautions. 2. Suspect d/c to [facility] if pt continues to progress well. 3. Pain well controlled. 4. Further orders per Hospitalist service. 5. Hgb 10.3. 6. Pt will d/c Plavix while using Xarelto for VTE prophylaxis. Pt will resume Plavix after 35-day course of Xarelto completed. This has been discussed with pt's prepper. The pt was evaluated by Dr. Baure today.
--- NOTE | 2020-06-30 14:53 | PCM.SURGPN ---
- General Info Date of Service: 06/30/20 POD#: 2 Functional Status: Reports: Pain Controlled, Tolerating Diet, Ambulating, Urinating, Incentive Spirometry, Other (The pt has progressed well with PT and OT.) - Patient Data Vitals - Most Recent: Last Vital Signs Temp 98.4 F 06/30/20 10:20 Pulse 93 06/30/20 10:20 Resp 16 06/30/20 10:20 BP 110/56 L 06/30/20 10:20 Pulse Ox 92 L 06/30/20 10:20 Weight - Most Recent: 188 lb 12.8 oz I&O - Last 24 Hours: Intake & Output 06/29/20 06/30/20 06/30/20 22:59 06:59 14:59 Intake Total 670 400 Output Total 300 300 Balance 370 100 Lab Results Last 24 Hrs: Laboratory Results - last 24 hr 06/29/20 06/29/20 06/30/20 Range/Units 17:38 20:18 06:39 WBC (3.98-10.04) K/mm3 RBC (3.98-5.22) M/mm3 Hgb (11.2-15.7) gm/dl Hct (34.1-44.9) % MCV (79.4-94.8) fl MCH (25.6-32.2) pg MCHC (32.2-35.5) g/dl RDW Std Deviation (36.4-46.3) fL Plt Count (182-369) K/mm3 MPV (9.4-12.3) fl Neut % (Auto) (34.0-71.1) % Lymph % (Auto) (19.3-51.7) % Beaver % (Auto) (4.7-12.5) % Eos % (Auto) (0.7-5.8) Baso % (Auto) (0.1-1.2) % Neut # (Auto) (1.56-6.13) K/mm3 Lymph # (Auto) (1.18-3.74) K/mm3 Beaver # (Auto) (0.24-0.36) K/mm3 Eos # (Auto) (0.04-0.36) K/mm3 Baso # (Auto) (0.01-0.08) K/mm3 Manual Slide Review Sodium (136-145) mEq/L Potassium (3.5-5.1) mEq/L Chloride (98-107) mEq/L Carbon Dioxide (21-32) mEq/L Anion Gap (5-15) BUN (7-18) mg/dL Creatinine (0.55-1.02) mg/dL Est Cr Clr Drug Dosing mL/min Estimated GFR (MDRD) (>60) mL/min BUN/Creatinine Ratio (14-18) Glucose (83-115) mg/dL POC Glucose 169 H 165 H 139 H (83-110) mg/dL Calcium (8.5-10.1) mg/dL Magnesium (1.8-2.4) mg/dl Total Bilirubin (0.2-1.0) mg/dL AST (15-37) U/L ALT (14-59) U/L Alkaline Phosphatase (46-116) U/L Total Protein (6.4-8.2) g/dl Albumin (3.4-5.0) g/dl Globulin gm/dL Albumin/Globulin Ratio (1-2) 06/30/20 06/30/20 Range/Units 07:32 07:32 WBC 10.94 H (3.98-10.04) K/mm3 RBC 3.63 L (3.98-5.22) M/mm3 Hgb 9.9 L (11.2-15.7) gm/dl Hct 31.8 L (34.1-44.9) % MCV 87.6 (79.4-94.8) fl MCH 27.3 (25.6-32.2) pg MCHC 31.1 L (32.2-35.5) g/dl RDW Std Deviation 42.3 (36.4-46.3) fL Plt Count 186 (182-369) K/mm3 MPV 9.2 L (9.4-12.3) fl Neut % (Auto) 80.2 H (34.0-71.1) % Lymph % (Auto) 9.9 L (19.3-51.7) % Beaver % (Auto) 9.2 (4.7-12.5) % Eos % (Auto) 0.3 L (0.7-5.8) Baso % (Auto) 0.1 (0.1-1.2) % Neut # (Auto) 8.78 H (1.56-6.13) K/mm3 Lymph # (Auto) 1.08 L (1.18-3.74) K/mm3 Beaver # (Auto) 1.01 H (0.24-0.36) K/mm3 Eos # (Auto) 0.03 L (0.04-0.36) K/mm3 Baso # (Auto) 0.01 (0.01-0.08) K/mm3 Manual Slide Review Normal smear Sodium 137 (136-145) mEq/L Potassium 3.7 (3.5-5.1) mEq/L Chloride 99 (98-107) mEq/L Carbon Dioxide 30 (21-32) mEq/L Anion Gap 11.7 (5-15) BUN 22 H (7-18) mg/dL Creatinine 0.9 (0.55-1.02) mg/dL Est Cr Clr Drug Dosing 44.11 mL/min Estimated GFR (MDRD) > 60 (>60) mL/min BUN/Creatinine Ratio 24.4 H (14-18) Glucose 141 H (83-115) mg/dL POC Glucose (83-110) mg/dL Calcium 8.7 (8.5-10.1) mg/dL Magnesium 1.7 L (1.8-2.4) mg/dl Total Bilirubin 0.6 (0.2-1.0) mg/dL AST 33 (15-37) U/L ALT 49 (14-59) U/L Alkaline Phosphatase 111 (46-116) U/L Total Protein 5.8 L (6.4-8.2) g/dl Albumin 2.7 L (3.4-5.0) g/dl Globulin 3.1 gm/dL Albumin/Globulin Ratio 0.9 L (1-2) Med Orders - Current: Current Medications Hydrocodone Bitart/Acetaminophen (Points 325-5 Mg) 1 - 2 tab PO Q4H PRN PRN Reason: Pain Last Admin: 06/30/20 12:21 Dose: 1 tab Documented by: Bisacodyl (Dulcolax) 5 mg PO DAILY PRN PRN Reason: Constipation Docusate Sodium (Colace) 100 mg PO BID [facility]UDETTE Last Admin: 06/30/20 10:17 Dose: 100 mg Documented by: Famotidine (Pepcid) 20 mg PO Q12H [facility] Last Admin: 06/30/20 10:17 Dose: 20 mg Documented by: Gabapentin (Neurontin) 100 mg PO BID [facility] Last Admin: 06/30/20 10:16 Dose: 100 mg Documented by: Hydrochlorothiazide (Hydrochlorothiazide) 25 mg PO DAILY [facility] Last Admin: 06/30/20 10:17 Dose: 25 mg Documented by: Losartan Potassium (Cozaar) 100 mg PO DAILY [facility] Last Admin: 06/30/20 10:17 Dose: 100 mg Documented by: Magnesium Hydroxide (Milk Of Magnesia) 30 ml PO BID PRN PRN Reason: Constipation Morphine Sulfate (Morphine) 2 mg IVPUSH Q2H PRN PRN Reason: Breakthrough Pain Naloxone HCl (Narcan) 0.1 mg IVPUSH Q5M PRN PRN Reason: Oversedation Ipratropium [ Atrovent 0.03% Nasal [place]] 0 each JASE QID PRN PRN Reason: sinusitis Rivaroxaban (Xarelto) 10 mg PO DAILY [facility] Last Admin: 06/30/20 10:24 Dose: 10 mg Documented by: Senna (Senna) 8.6 mg PO BID PRN PRN Reason: Constipation Discontinued Medications Bupivacaine HCl (Sensorcaine-Mpf 0.25%) Confirm Administered Dose 30 ml .ROUTE .STK-MED ONE Stop: 06/28/20 07:09 Last Admin: 06/28/20 09:30 Dose: 30 ml Documented by: Cefazolin Sodium (Ancef) Confirm Administered Dose 2 gm .ROUTE .STK-MED ONE Stop: 06/28/20 07:06 Cefazolin Sodium (Ancef) Confirm Administered Dose 2 gm .ROUTE .STK-MED ONE Stop: 06/28/20 07:09 Last Admin: 06/28/20 09:23 Dose: 2 gm Documented by: Morphine Sulfate 8 mg/Epinephrine HCl 0.3 mg/Cefuroxime Sodium 750 mg/Ketorolac Tromethamine 30 mg/Sodium Chloride 7.9 ml 0 mg .XX ONETIME ONE Stop: 06/28/20 08:31 Last Admin: 06/28/20 09:30 Dose: 788.3 mg Documented by: Fentanyl (Sublimaze) Confirm Administered Dose 100 mcg .ROUTE .STK-MED ONE Stop: 06/28/20 07:05 Fentanyl (Sublimaze) 50 mcg IVPUSH Q5M PRN PRN Reason: Pain Stop: 06/28/20 14:00 Last Admin: 06/28/20 10:20 Dose: 50 mcg Documented by: Lactated Ringer's (Ringers, Lactated) 1,000 mls @ 125 mls/hr IV ASDIRECTED [facility] Stop: 06/28/20 23:00 Last Admin: 06/28/20 07:27 Dose: 125 mls/hr Documented by: Lidocaine HCl (Xylocaine-Mpf 1%) Confirm Administered Dose 4 mls @ as directed .ROUTE .STK-MED ONE Stop: 06/28/20 07:05 Cefazolin Sodium/Dextrose 2 gm (/ Premix) 50 mls @ 100 mls/hr IV Q8H [facility] Stop: 06/29/20 09:59 Last Admin: 06/29/20 10:40 Dose: 100 mls/hr Documented by: Lactated Ringer's (Ringers, Lactated) Confirm Administered Dose 1,000 mls @ as directed .ROUTE .STK-MED ONE Stop: 06/28/20 08:02 Magnesium Sulfate 2 gm/ Premix 50 mls @ 25 mls/hr IV ONETIME ONE Stop: 06/30/20 10:48 Last Admin: 06/30/20 10:19 Dose: 25 mls/hr Documented by: Iodine (Iodine 2% Mild Tincture) Confirm Administered Dose 30 ml .ROUTE .STK-MED ONE Stop: 06/28/20 07:09 Last Admin: 06/28/20 09:20 Dose: 18 ml Documented by: Lidocaine/Sodium Bicarbonate (Buffered Lidocaine 1% In Ns 8.4%) 0.25 ml IDERM ONETIME PRN PRN Reason: Prior to IV Start Stop: 06/28/20 18:00 Midazolam HCl (Versed 1 Mg/Ml) Confirm Administered Dose 2 mg .ROUTE .STK-MED ONE Stop: 06/28/20 08:20 Ondansetron HCl (Zofran) Confirm Administered Dose 4 mg .ROUTE .STK-MED ONE Stop: 06/28/20 07:04 Propofol (Diprivan 20 Ml) Confirm Administered Dose 200 mg .ROUTE .STK-MED ONE Stop: 06/28/20 07:05 Propofol (Diprivan 20 Ml) Confirm Administered Dose 200 mg .ROUTE .STK-MED ONE Stop: 06/28/20 08:38 Propofol (Diprivan 20 Ml) Confirm Administered Dose 200 mg .ROUTE .STK-MED ONE Stop: 06/28/20 09:09 Sodium Chloride (Saline Flush) 10 ml FLUSH ASDIRECTED PRN PRN Reason: Keep Vein Open Stop: 06/28/20 18:00 Tranexamic Acid (Cyklokapron) Confirm Administered Dose 1,000 mg .ROUTE .STK-MED ONE Stop: 06/28/20 07:08 Last Admin: 06/28/20 09:35 Dose: 1,000 mg Documented by: Vancomycin HCl (Vancomycin) Confirm Administered Dose 1 gm .ROUTE .STK-MED ONE Stop: 06/28/20 07:09 Last Admin: 06/28/20 09:35 Dose: 1 gm Documented by: - Exam Wound/Incisions: Dressing Dry and Intact General: Alert, Cooperative, No Acute Distress Lungs: Normal Respiratory Effort Extremities: Other (Left thigh soft. Josselyn's negative.) Sepsis Event Note - Evaluation Sepsis Screening Result: No Definite Risk - Focused Exam Vital Signs: Vital Signs Temp Pulse Resp BP Pulse Ox 06/30/20 10:20 98.4 F 93 16 110/56 L 92 L 06/30/20 10:17 110/56 L 06/30/20 04:12 85 97 06/30/20 03:49 98.2 F 88 18 112/63 94 L - Problem List Review Problem List Initiated/Reviewed/Updated: Yes - My Orders Last 24 Hours: Active Orders 24 hr Category Date Time Status Communication Order [RC] ASDIRECTED Care 06/30/20 10:25 Active Evaluate for Home Oxygen [RT Evaluate for Home Oxygen] Care 06/30/20 09:58 Active [RC] Click to Edit Ready for Discharge [RC] PER UNIT ROUTINE Care 06/30/20 10:25 Active Medication Orders Hydrocodone Bitart/Acetaminophen (Points 325-5 Mg) 1 - 2 tab PO Q4H PRN PRN Reason: Pain Last Admin: 06/30/20 12:21 Dose: 1 tab Documented by: Admin: 06/30/20 08:32 Dose: 1 tab Documented by: Admin: 06/30/20 04:00 Dose: 2 tab Documented by: Admin: 06/29/20 19:44 Dose: 2 tab Documented by: Admin: 06/29/20 10:01 Dose: 2 tab Documented by: Admin: 06/28/20 21:11 Dose: 1 tab Documented by: Admin: 06/28/20 14:52 Dose: 2 tab Documented by: JOAO Bisacodyl (Dulcolax) 5 mg PO DAILY PRN PRN Reason: Constipation Docusate Sodium (Colace) 100 mg PO BID [facility] Last Admin: 06/30/20 10:17 Dose: 100 mg Documented by: Admin: 06/29/20 20:34 Dose: 100 mg Documented by: Admin: 06/29/20 09:51 Dose: 100 mg Documented by: Admin: 06/28/20 21:10 Dose: 100 mg Documented by: LANCE Famotidine (Pepcid) 20 mg PO Q12H [facility] Last Admin: 06/30/20 10:17 Dose: 20 mg Documented by: Admin: 06/29/20 20:35 Dose: 20 mg Documented by: Admin: 06/29/20 09:51 Dose: 20 mg Documented by: Admin: 06/28/20 21:10 Dose: 20 mg Documented by: LANCE Gabapentin (Neurontin) 100 mg PO BID [facility] Admin: 06/30/20 10:16 Dose: 100 mg Documented by: Admin: 06/29/20 20:34 Dose: 100 mg Documented by: Admin: 06/29/20 09:51 Dose: 100 mg Documented by: Admin: 06/28/20 21:10 Dose: 100 mg Documented by: LANCE Hydrochlorothiazide (Hydrochlorothiazide) 25 mg PO DAILY [facility] Last Admin: 06/30/20 10:17 Dose: 25 mg Documented by: Admin: 06/29/20 09:51 Dose: 25 mg Documented by: DIEGO Losartan Potassium (Cozaar) 100 mg PO DAILY [facility] Last Admin: 06/30/20 10:17 Dose: 100 mg Documented by: Admin: 06/29/20 09:51 Dose: 100 mg Documented by: DIEGO Magnesium Hydroxide (Milk Of Magnesia) 30 ml PO BID PRN PRN Reason: Constipation Morphine Sulfate (Morphine) 2 mg IVPUSH Q2H PRN PRN Reason: Breakthrough Pain Naloxone HCl (Narcan) 0.1 mg IVPUSH Q5M PRN PRN Reason: Oversedation Ipratropium [ Atrovent 0.03% Nasal [place]] 0 each JASE QID PRN PRN Reason: sinusitis Rivaroxaban (Xarelto) 10 mg PO DAILY [facility] Last Admin: 06/30/20 10:24 Dose: 10 mg Documented by: Admin: 06/30/20 10:17 Dose: 10 mg Documented by: Admin: 06/29/20 09:52 Dose: 10 mg Documented by: DIEGO Alarcon (Senna) 8.6 mg PO BID PRN PRN Reason: Constipation - Assessment Assessment (Free Text/Narrative):: POD#2 - left ОЛЕГ - Plan Plan (Free Text/Narrative):: 1. Discharge to [place] today. Home Health services ordered. 2. Xarelto x 35 days total. The pt will resume use of Plavix when Xarelto course complete. 3. Points for pain management. The pt was evaluated by Dr. Bauer today. [id number] DOCUMENTATION This note will serve as the [id number] documentation for the patient to receive home health physical therapy and nursing services. The pt was evaluated by Dr. Bauer on 06-30-2020. The pt is s/p left ОЛЕГ with Dr. Bauer on 06-28-2020. The pt also carries diagnoses of DM, HTN, hx TIA, obesity, OA, osteoporosis, anemia. The pt is in need of skilled home health physical therapy services at this time. P.T. will assist with increasing the pt's safety with mobility, as well as strength and endurance. P.T. will provide education regarding the pt's rehabilitation and total hip precautions. Home Health nursing services were ordered to assist pt with monitoring of the surgical wound, as well as management of the pt's comorbidities. Nursing will assist with monitoring blood sugars and with diabetes management, as well as to assist with pain management. The pt is currently home-bound due to recent surgery and decreased level of endurance. The pt uses a FWW for mobility. The pt will be followed by her primary providers Marilin Villa PA-C and Dr. Chau.
--- NOTE | 2020-06-30 15:07 | PCM.DCSUM1 ---
Discharge Summary - Hospital Course Brief History: Estelle is an 80 yo female who underwent left ОЛЕГ with Dr. Bauer on 06-28-2020. The pt tolerated the procedure well and was admitted to the Medical-Surgical Unit. Medical management was provided by the Hospitalist service. The pt's DM and HTN were closely monitored. The pt's Hgb on POD#1 was 10.3. The pt was placed on Xarelto on POD#1. The pt will hold use of Plavix while on Xarelto. When the Xarelto course is completed in 35 days, the pt will resume use of Plavix. The pt particpated on PT and OT during Hospital stay. She used a FWW for mobility and followed the ОЛЕГ precautions. The pt was allowed to d/c to [facility] on POD#2. The pt will receive home health physical therapy and nursing services at [facility]. Please see the post-op noted from 06-30-2020 for the [id number] documentation for skilled PT services and nursing services. - Discharge Data Discharge Date: 06/30/20 Discharge Disposition: Home, Self-Care 01 Condition: Good - Referral to Home Health Primary Care Physician: Marilin Villa PA-C - Patient Summary/Data Consults: Consultations 06/28/20 07:30 OT Evaluation and Treatment [CONS] Routine PT Evaluation and Treatment [CONS] Routine 06/28/20 07:49 Consult to Physician [CONS] Routine - Patient Instructions Diet: Usual Diet as Tolerated Activity: Apply Ice, As Tolerated, Elevate Extremity, Full Weight Bearing Activity, Other: Follow the total hip precautions. Driving: Do Not Drive Showering/Bathing: May Shower Wound/Incision Care: Keep Operative Site/Wound Site Clean and Dry, Do NOT Change Dressing Notify Provider of: Fever, Increased Pain, Swelling and Redness, Drainage, Nausea and/or Vomiting Other/Special Instructions: Please get up and moving around EVERY HOUR while awake. This helps to prevent blood clots. Please use your walker and have help with mobility as needed. Take a short walk every hour while awake. Please take the Xarelto blood thinner medication daily as directed. The use of Xarelto has been discussed with your wheel of fortune dealer. At this time, you will HOLD on use of Plavix and will use Xarelto for 35 days. When the Xarelto course is completed in 35 days, you will resume use of Plavix daily. Please complete the exercises that you learned during the Hospital stay. Please follow the total hip precautions. Schedule for physical therapy. Use the pain medication as needed. The medication may cause drowsiness and constipation. Contact your primary care provider for instructions if you are constipated. You may use a stool softener like docusate sodium or Colace 100mg twice daily and/or a laxative like Miralax daily for constipation. Increase your water and fiber in take while you are using the pain medication. Please discontinue use of the prescription pain medication as soon as able. The goal is to use the least amount of prescription pain medication as possible and to discontinue use of the prescription pain medication as soon as possible. Please do not use other medications that may cause drowsiness (other pain medications, anxiety pills, cold medications, sleeping pills, etc) while using the prescription pain medication. Do not use alcohol while using the pain medication. You may use acetaminophen or Tylenol for pain management, however, please ensure you are not using over 4000 mg or 4 grams of acetaminophen per day from all sources. Your pain medication has 325mg of acetaminophen per tablet. You may use the Ultram (tramadol) that you have at home for pain management OR the Republic (hydrocodone) for pain management BUT NOT BOTH. Please choose one or the other. At this time, please do not use ibuprofen (Motrin, Advil) or naproxen (Aleve) for pain management as you are using the Xarelto. When the Xarelto course is completed in 5 weeks, you could use ibuprofen or naproxen for pain management (IF THIS IS ALLOWED by your primary care provider). Wear the PAT hose during the day and you may remove these at night. Elevate the limb to decrease swelling. Place ice to the area often. Place a towel between your skin and the blue pad. Use the incentive spirometer often. Take deep breaths throughout the day. Please keep the dressing in place until follow-up. Notify the Clinic if the dressing becomes saturated. Increase your protein intake while you are healing. Because you have diabetes, please closely monitor your blood sugars and notify your primary care provider with abnormal values. Elevated blood sugars increases the risk of infection. It is normal to have swelling and bruising at the surgical site, as well as above and below the surgical site. You may resume use of herbal medications in 2 weeks. Call the Clinic with questions or concerns - [phone] and leave a message for the nurse. - Discharge Plan *PRESCRIPTION DRUG MONITORING PROGRAM REVIEWED*: No *COPY OF PRESCRIPTION DRUG MONITORING REPORT IN PATIENT DANDY: No Prescriptions/Med Rec: Acetaminophen/HYDROcodone [Republic 325-5 MG] 1 - 2 tab PO Q6H PRN #30 tablet PRN Reason: Pain Rivaroxaban [Xarelto] 10 mg PO DAILY #33 tablet Home Medications: Home Meds Calcium Carbonate [Calcium] 500 mg PO DAILY 06/27/20 [History] Cholecalciferol (Vitamin D3) [Vitamin D3] 1,000 unit PO DAILY 06/27/20 [History] Gabapentin [Neurontin] 100 mg PO DAILY 06/27/20 [History] Ipratropium [Atrovent 0.03% Nasal [place]] 1 dose NASBOTH QID PRN 06/27/20 [ History] Losartan/Hydrochlorothiazide [Losartan-HCTZ 100-25 MG] 1 tab PO DAILY 06/27/20 [History] Vit C/E/Zn/Coppr/Lutein/Zeaxan [Preservision Areds 2 Softgel] 1 cap PO DAILY 06/27/20 [History] raNITIdine 150 mg PO BID 06/28/20 [History] Acetaminophen [Tylenol Extra Strength] 1,000 mg PO QID PRN #0 06/30/20 [Rx] Acetaminophen/HYDROcodone [Republic 325-5 MG] 1 - 2 tab PO Q6H PRN #30 tablet 06/30/20 [Rx] Docusate Sodium [Colace] 100 mg PO BID cap 06/30/20 [Rx] Magnesium Hydroxide [Milk of Magnesia] 30 ml PO BID PRN cup 06/30/20 [Rx] Rivaroxaban [Xarelto] 10 mg PO DAILY #33 tablet 06/30/20 [Rx] Sennosides [Senna] 8.6 mg PO BID PRN tablet 06/30/20 [Rx] bisacodyL [Dulcolax] 5 mg PO DAILY PRN tablet 06/30/20 [Rx] traMADol [Ultram] 50 mg PO Q6H PRN #0 06/30/20 [Rx] Patient Handouts: Rivaroxaban oral tablets, Total Hip Replacement, [id number] Referrals: Janae Vora PA-C [Physician [employer]] - (You have three follow ups with Janae Vora and they are as follows: 07/05/[address] Bauer 07/11/20 at 1215 with Janae Vora 08/09/20 at 1pm with Janae Vora ) - Discharge Summary/Plan Comment DC Time >30 min.: No - Patient Data Vitals - Most Recent: Last Vital Signs Temp 98.4 F 06/30/20 10:20 Pulse 93 06/30/20 10:20 Resp 16 06/30/20 10:20 BP 110/56 L 06/30/20 10:20 Pulse Ox 92 L 06/30/20 10:20 Weight - Most Recent: 188 lb 12.8 oz I&O - Last 24 hours: Intake & Output 06/30/20 06/30/20 06/30/20 06:59 14:59 22:59 Intake Total 400 Output Total 300 Balance 100 Lab Results - Last 24 hrs: Laboratory Results - last 24 hr 06/29/20 06/29/20 06/30/20 Range/Units 17:38 20:18 06:39 WBC (3.98-10.04) K/mm3 RBC (3.98-5.22) M/mm3 Hgb (11.2-15.7) gm/dl Hct (34.1-44.9) % MCV (79.4-94.8) fl MCH (25.6-32.2) pg MCHC (32.2-35.5) g/dl RDW Std Deviation (36.4-46.3) fL Plt Count (182-369) K/mm3 MPV (9.4-12.3) fl Neut % (Auto) (34.0-71.1) % Lymph % (Auto) (19.3-51.7) % [place] % (Auto) (4.7-12.5) % Eos % (Auto) (0.7-5.8) Baso % (Auto) (0.1-1.2) % Neut # (Auto) (1.56-6.13) K/mm3 Lymph # (Auto) (1.18-3.74) K/mm3 [place] # (Auto) (0.24-0.36) K/mm3 Eos # (Auto) (0.04-0.36) K/mm3 Baso # (Auto) (0.01-0.08) K/mm3 Manual Slide Review Sodium (136-145) mEq/L Potassium (3.5-5.1) mEq/L Chloride (98-107) mEq/L Carbon Dioxide (21-32) mEq/L Anion Gap (5-15) BUN (7-18) mg/dL Creatinine (0.55-1.02) mg/dL Est Cr Clr Drug Dosing mL/min Estimated GFR (MDRD) (>60) mL/min BUN/Creatinine Ratio (14-18) Glucose (83-115) mg/dL POC Glucose 169 H 165 H 139 H (83-110) mg/dL Calcium (8.5-10.1) mg/dL Magnesium (1.8-2.4) mg/dl Total Bilirubin (0.2-1.0) mg/dL AST (15-37) U/L ALT (14-59) U/L Alkaline Phosphatase (46-116) U/L Total Protein (6.4-8.2) g/dl Albumin (3.4-5.0) g/dl Globulin gm/dL Albumin/Globulin Ratio (1-2) 06/30/20 06/30/20 Range/Units 07:32 07:32 WBC 10.94 H (3.98-10.04) K/mm3 RBC 3.63 L (3.98-5.22) M/mm3 Hgb 9.9 L (11.2-15.7) gm/dl Hct 31.8 L (34.1-44.9) % MCV 87.6 (79.4-94.8) fl MCH 27.3 (25.6-32.2) pg MCHC 31.1 L (32.2-35.5) g/dl RDW Std Deviation 42.3 (36.4-46.3) fL Plt Count 186 (182-369) K/mm3 MPV 9.2 L (9.4-12.3) fl Neut % (Auto) 80.2 H (34.0-71.1) % Lymph % (Auto) 9.9 L (19.3-51.7) % [place] % (Auto) 9.2 (4.7-12.5) % Eos % (Auto) 0.3 L (0.7-5.8) Baso % (Auto) 0.1 (0.1-1.2) % Neut # (Auto) 8.78 H (1.56-6.13) K/mm3 Lymph # (Auto) 1.08 L (1.18-3.74) K/mm3 [place] # (Auto) 1.01 H (0.24-0.36) K/mm3 Eos # (Auto) 0.03 L (0.04-0.36) K/mm3 Baso # (Auto) 0.01 (0.01-0.08) K/mm3 Manual Slide Review Normal smear Sodium 137 (136-145) mEq/L Potassium 3.7 (3.5-5.1) mEq/L Chloride 99 (98-107) mEq/L Carbon Dioxide 30 (21-32) mEq/L Anion Gap 11.7 (5-15) BUN 22 H (7-18) mg/dL Creatinine 0.9 (0.55-1.02) mg/dL Est Cr Clr Drug Dosing 44.11 mL/min Estimated GFR (MDRD) > 60 (>60) mL/min BUN/Creatinine Ratio 24.4 H (14-18) Glucose 141 H (83-115) mg/dL POC Glucose (83-110) mg/dL Calcium 8.7 (8.5-10.1) mg/dL Magnesium 1.7 L (1.8-2.4) mg/dl Total Bilirubin 0.6 (0.2-1.0) mg/dL AST 33 (15-37) U/L ALT 49 (14-59) U/L Alkaline Phosphatase 111 (46-116) U/L Total Protein 5.8 L (6.4-8.2) g/dl Albumin 2.7 L (3.4-5.0) g/dl Globulin 3.1 gm/dL Albumin/Globulin Ratio 0.9 L (1-2) Med Orders - Current: Current Medications Hydrocodone Bitart/Acetaminophen (Republic 325-5 Mg) 1 - 2 tab PO Q4H PRN PRN Reason: Pain Last Admin: 06/30/20 12:21 Dose: 1 tab Documented by: Bisacodyl (Dulcolax) 5 mg PO DAILY PRN PRN Reason: Constipation Docusate Sodium (Colace) 100 mg PO BID [facility] Last Admin: 06/30/20 10:17 Dose: 100 mg Documented by: Famotidine (Pepcid) 20 mg PO Q12H [facility] Last Admin: 06/30/20 10:17 Dose: 20 mg Documented by: Gabapentin (Neurontin) 100 mg PO BID [facility] Last Admin: 06/30/20 10:16 Dose: 100 mg Documented by: Hydrochlorothiazide (Hydrochlorothiazide) 25 mg PO DAILY [facility] Last Admin: 06/30/20 10:17 Dose: 25 mg Documented by: Losartan Potassium (Cozaar) 100 mg PO DAILY [facility] Last Admin: 06/30/20 10:17 Dose: 100 mg Documented by: Magnesium Hydroxide (Milk Of Magnesia) 30 ml PO BID PRN PRN Reason: Constipation Morphine Sulfate (Morphine) 2 mg IVPUSH Q2H PRN PRN Reason: Breakthrough Pain Naloxone HCl (Narcan) 0.1 mg IVPUSH Q5M PRN PRN Reason: Oversedation Ipratropium [ Atrovent 0.03% Nasal [place]] 0 each JASE QID PRN PRN Reason: sinusitis Rivaroxaban (Xarelto) 10 mg PO DAILY [facility] Last Admin: 06/30/20 10:24 Dose: 10 mg Documented by: Senna (Senna) 8.6 mg PO BID PRN PRN Reason: Constipation Discontinued Medications Bupivacaine HCl (Sensorcaine-Mpf 0.25%) Confirm Administered Dose 30 ml .ROUTE .STK-MED ONE Stop: 06/28/20 07:09 Last Admin: 06/28/20 09:30 Dose: 30 ml Documented by: Cefazolin Sodium (Ancef) Confirm Administered Dose 2 gm .ROUTE .STK-MED ONE Stop: 06/28/20 07:06 Cefazolin Sodium (Ancef) Confirm Administered Dose 2 gm .ROUTE .STK-MED ONE Stop: 06/28/20 07:09 Last Admin: 06/28/20 09:23 Dose: 2 gm Documented by: Morphine Sulfate 8 mg/Epinephrine HCl 0.3 mg/Cefuroxime Sodium 750 mg/Ketorolac Tromethamine 30 mg/Sodium Chloride 7.9 ml 0 mg .XX ONETIME ONE Stop: 06/28/20 08:31 Last Admin: 06/28/20 09:30 Dose: 788.3 mg Documented by: Fentanyl (Sublimaze) Confirm Administered Dose 100 mcg .ROUTE .STK-MED ONE Stop: 06/28/20 07:05 Fentanyl (Sublimaze) 50 mcg IVPUSH Q5M PRN PRN Reason: Pain Stop: 06/28/20 14:00 Last Admin: 06/28/20 10:20 Dose: 50 mcg Documented by: Lactated Ringer's (Ringers, Lactated) 1,000 mls @ 125 mls/hr IV ASDIRECTED [facility] Stop: 06/28/20 23:00 Last Admin: 06/28/20 07:27 Dose: 125 mls/hr Documented by: Lidocaine HCl (Xylocaine-Mpf 1%) Confirm Administered Dose 4 mls @ as directed .ROUTE .STK-MED ONE Stop: 06/28/20 07:05 Cefazolin Sodium/Dextrose 2 gm (/ Premix) 50 mls @ 100 mls/hr IV Q8H [facility] Stop: 06/29/20 09:59 Last Admin: 06/29/20 10:40 Dose: 100 mls/hr Documented by: Lactated Ringer's (Ringers, Lactated) Confirm Administered Dose 1,000 mls @ as directed .ROUTE .STK-MED ONE Stop: 06/28/20 08:02 Magnesium Sulfate 2 gm/ Premix 50 mls @ 25 mls/hr IV ONETIME ONE Stop: 06/30/20 10:48 Last Admin: 06/30/20 10:19 Dose: 25 mls/hr Documented by: Iodine (Iodine 2% Mild Tincture) Confirm Administered Dose 30 ml .ROUTE .STK-MED ONE Stop: 06/28/20 07:09 Last Admin: 06/28/20 09:20 Dose: 18 ml Documented by: Lidocaine/Sodium Bicarbonate (Buffered Lidocaine 1% In Ns 8.4%) 0.25 ml IDERM ONETIME PRN PRN Reason: Prior to IV Start Stop: 06/28/20 18:00 Midazolam HCl (Versed 1 Mg/Ml) Confirm Administered Dose 2 mg .ROUTE .STK-MED ONE Stop: 06/28/20 08:20 Ondansetron HCl (Zofran) Confirm Administered Dose 4 mg .ROUTE .STK-MED ONE Stop: 06/28/20 07:04 Propofol (Diprivan 20 Ml) Confirm Administered Dose 200 mg .ROUTE .STK-MED ONE Stop: 06/28/20 07:05 Propofol (Diprivan 20 Ml) Confirm Administered Dose 200 mg .ROUTE .STK-MED ONE Stop: 06/28/20 08:38 Propofol (Diprivan 20 Ml) Confirm Administered Dose 200 mg .ROUTE .STK-MED ONE Stop: 06/28/20 09:09 Sodium Chloride (Saline Flush) 10 ml FLUSH ASDIRECTED PRN PRN Reason: Keep Vein Open Stop: 06/28/20 18:00 Tranexamic Acid (Cyklokapron) Confirm Administered Dose 1,000 mg .ROUTE .STK-MED ONE Stop: 06/28/20 07:08 Last Admin: 06/28/20 09:35 Dose: 1,000 mg Documented by: Vancomycin HCl (Vancomycin) Confirm Administered Dose 1 gm .ROUTE .STK-MED ONE Stop: 06/28/20 07:09 Last Admin: 06/28/20 09:35 Dose: 1 gm Documented by:
--- NOTE | 2020-07-04 09:21 | PCM.OPNOTE ---
- General Post-Op/Procedure Note Date of Surgery/Procedure: 06/21/20 Operative Procedure(s): left total hip arthroplasty Pre Op Diagnosis: left hip osteoarthrosis Post-Op Diagnosis: Same Anesthesia Technique: Local, MAC, Spinal Primary Surgeon: Iglesia Bauer Anesthesia Provider: [employer] Teacher: Gabi Peck EBL in mLs: 500 Complications: None Condition: Good Free Text/Narrative:: 54 cup 4 stem 36+5
--- NOTE | 2020-07-05 07:55 | OR ---
DATE OF OPERATION: 06/28/2020 SURGEON: Iglesia Bauer MD OPERATION PERFORMED: Left total hip arthroplasty. PREOPERATIVE DIAGNOSIS: Left hip osteoarthrosis. POSTOPERATIVE DIAGNOSIS: Left hip osteoarthrosis. ANESTHESIA: Local MAC with spinal. ANESTHESIA PROVIDER: Elpidio Maurer CRNA SODA DRIER FEEDER: Gabi Peck LPN ESTIMATED BLOOD LOSS: 500 mL. COMPLICATIONS: None. CONDITION: Stable. IMPLANTS: 1. Radha size 54 mm solid Tritanium II acetabular cup. 2. Radha size 4 Accolade II stem. 3. Radha size 36 +5 Biolox femoral head. DESCRIPTION OF PROCEDURE: The patient was identified in the preoperative holding area. Proper site was marked and identified by the surgeon. The patient was taken back to the operating theater where after adequate anesthesia, the patient was placed in a right lateral decubitus position. Pegs were then placed and well padded. The patient's gluteal fold was parallel to the floor. Axillary roll was then placed. Left hip was then sterilely prepped and draped in the usual sterile fashion. OR time-out was performed. The patient received 2 g of IV Ancef. At this time, standard posterior incision was made. This was taken down to the IT band and gluteal fascia, which was incised along the incisional length. Charnley retractor was then placed. Short external rotators identified and takedown of short external rotators was done from the level of the piriformis down to the lesser trochanter. Hip was then dislocated. Neck cut was completed and found to be adequate. Attention was turned to the acetabulum. Anterior and posterior acetabular retractors were then placed. Circumferential removal of the labrum as well as the pulvinar was done at this time. Starting with a 50 reamer, I was able to ream up to a 54, which was found to have adequate purchase. A 54 mm solid Tritanium II acetabular cup was then impacted into place in anatomic position for the patient. A 36 mm flat liner was then impacted into place as well. Attention was turned to the femur. Box chisel and starter awl were placed down the canal. Starting with 0 broach, I was able to broach up to a size 4, which was found to be rotationally and vertically stable. I trialed the +0 head, was found to be a minor amount short, so +5 was trialed and it was found to have adequate cheondoism of leg lengths and was stable throughout range of motion. The trial implants were then removed and a size 4 Accolade II stem was impacted into place. The 36 +5 Biolox femoral head was then impacted into place and the hip was then relocated. 1 L dilute Betadine solution was irrigated through the hip along with 3 L of pulsed lavage irrigation with Ancef. Topical tranexamic acid and vancomycin powder were applied. Periarticular injection was completed. #5 Ethibond suture was used for closure of the short external rotators and capsule. #2 barbed suture was used for closure of the IT band and gluteal fascia. 2-0 Vicryl was used subcutaneously as well as the Stratafix and Prineo was used for closure of skin. The patient tolerated the procedure well and was sent to PACU in stable condition. MMODAL /[id number]
== END 2020-06-30 13:35 | disposition home or self-care (01) | DRG 470 ==
LOC: JD.MS 06:24
PROVIDERS: ADMIT Orthopaedic Surgery; ATTEND Orthopaedic Surgery
PROC: 0SRB01Z Replacement of Left Hip Joint with Metal Synthetic Substitute, Open Approach (ICD-10-PCS; principal; 2020-06-28)
DX: M16.12 Unilateral primary osteoarthritis, left hip (principal); I10 Essential (primary) hypertension; E78.5 Hyperlipidemia, unspecified; E66.9 Obesity, unspecified; I35.0 Nonrheumatic aortic (valve) stenosis; F41.9 Anxiety disorder, unspecified; Z20.828 Contact with and (suspected) exposure to other viral communicable diseases; F32.9 Major depressive disorder, single episode, unspecified; K21.9 Gastro-esophageal reflux disease without esophagitis; M81.0 Age-related osteoporosis without current pathological fracture; D64.9 Anemia, unspecified; E55.9 Vitamin D deficiency, unspecified; E11.42 Type 2 diabetes mellitus with diabetic polyneuropathy; K59.09 Other constipation; E50.9 Vitamin A deficiency, unspecified; Z86.73 Personal history of transient ischemic attack (TIA), and cerebral infarction without residual deficits; Z88.8 Allergy status to other drugs, medicaments and biological substances; Z90.49 Acquired absence of other specified parts of digestive tract; Z88.5 Allergy status to narcotic agent; Z88.1 Allergy status to other antibiotic agents; Z87.442 Personal history of urinary calculi; Z79.899 Other long term (current) drug therapy; Z68.31 Body mass index [BMI] 31.0-31.9, adult
CPT/HCPCS: 01214; 36415; 73501-26-LT; 73501-LT; 80053; 82962; 83735; 85025; 85027; 86850; 86900; 86901; 94760; 97110-GP; 97116-GP; 97162-GP; 97165-GO; 97530-GP; 97535-GO; 99221; 99231; A9270-GY; C1776; J0171; J0690; J0697; J1885; J2001; J2250; J2270; J2405; J2704; J3010; J3370; J3475; J3490; J7120; U0002